=== PATIENT | male | born 1985 | race Two or more races ===

== ENCOUNTER 2024-07-07 17:01 | Inpatient (IN) | payer MEDICAID, OTHER ==
[~2024-07-07] VITALS: Ht 177.8 cm; Wt 65.5 kg
[2024-07-07] MEDS: fentaNYL CITRATE 100 MCG/2 ML VL IV ONE ×2 (17:15→20:36)
[2024-07-07] MEDS: SODIUM CHLORIDE 0.9% 500 ML IV ONE (17:15)
--- NOTE | 2024-07-07 17:17 | ED.PDOC ---
Musculoskeletal HPI Comments HPI: Poor Historian. 38-year-old male presents to the emergency department for left leg pain. Patient states he was playing basketball and he jumped and landed and heard a crack and has sudden severe left proximal tibia pain with noted deformity and swelling. Patient has been unable to ambulate since then. He appears in moderate distress. Denies any other acute symptoms. VITALS: TEMP: 98.2 HEART RATE; 110 02 SAT; 100% on room air RR; 18 BP; 123/87 PMH:denies PSH: denies SOCIAL HISTORY: denies tobacco use, endorses etoh use, endorses drug use(marijuana) MEDS; denies ALLERGIES; denies REVIEW OF SYSTEMS: CONSTITUTIONAL: Denies acute: fever, diaphoresis, chills, generalized weakness. HEAD: Denies acute: headache, photophobia Eyes: Denies acute: Double vision, vision loss, eye pain, eye discharge. EARS: Denies acute: tinnitus, hearing loss, ear discharge, ear pain, THROAT: Denies acute: sore throat, swelling, difficulty swallowing , pain with swallowing, change in voice. NECK: Denies acute: neck pain, neck swelling, stiff neck. HEART: Denies acute : chest pain, palpitations, LUNGS: Denies acute: SOB, wheezing, cough, hemoptysis ABDOMEN: Denies acute: abdominal pain, Nausea, Vomiting, diarrhea, melena , hematemesis, hematochezia SKIN: Denies acute: rash, redness, lesions, itchiness. EXTREMITIES: Denies acute: calf pain, numbness, tingling, weakness, denies pain in extremity. Denies acute: Low back pain. Neuro: Denies acute: focal neurological deficit, motor or sensory focal neurological deficit, tremors, seizure like activity, confusion, dizziness, change in mental status, loss of bowel or bladder function, cauda equina like symptoms. : Denies acute: dysuria, hematuria, flank pain, increase in urinary frequency. PSYCH: Denies acute: hallucination, suicidal ideation, homicidal ideation. PHYSICAL EXAM: General: Moderate acute distress, awake and alert. Head: normocephalic, atraumatic. Neck: supple, trachea is midline, no swelling. Throat: Normal phonation. Eyes:, no erythema, no purulent discharge, no proptosis, no icterus. Heart: regular tachycardia but in pain. no significant murmur appreciated. Lungs: no apparent respiratory distress, Able to speak in full sentences. No wheezing, no rhonchi, no crackles. No stridors Clear to auscultation bilaterally. Abdomen: non tender to palpation, non distended, soft, no guarding, no rebound, + bowel sounds. Neuro: Awake, Alert, oriented to name, self, situation, follows commands GCS=15. Speech is normal. Skin: no petechia, no purpura, no cyanosis, non-pale, not jaundice. Lower extremities: --no - Pitting edema Noted focal swelling and deformity over the proximal part of the anterior tibia of left extremity. no calf TTP. Patient is neurovascularly intact in the affected extremity. Pedal pulses palpable. Sensory and motor are present in the distal extremity. Makes eye contact. moves all four extremities. Decreased range of motion of the left lower extremity secondary to pain Face: no apparent facial droop. Chief Complaint: Lower Extremity Time Seen by MD: 17:05 Reviewed Notes: Nurses Notes, Medications, Allergies Allergies: Coded Allergies: NO KNOWN ALLERGIES (Unverified , 07/07/24) Information Source: Patient Mode of Arrival: Ambulatory Brought in by: self Location: Left Past Medical History PAST MEDICAL HISTORY: Denies Surgical History: Denies all surgeries Family History Family History: Reviewed,noncontributory to illness Social History Smoker: Non-Smoker Alcohol: Occasionally Drugs: Marijuana Lives In: Home Was a procedure done? Was a procedure done?: No Differential Diagnosis EXT Differential Diagnosis: Deep Vein Thrombosis, Compartment Syndrome, Fracture, Sprain, Dislocation, Gout, DJD, Myocardial Infarction, Contusion, Strain, Septic, Neurovascular injury, Arthritis, Bursitis X-Ray, Labs, Meds, VS Vital Signs Date Time Temp Pulse Resp B/P (MAP) Pulse Ox O2 Delivery O2 Flow Rate FiO2 07/07/24 20:36 143/107 07/07/24 20:32 98.3 68 18 143/107 (119) 100 98.3 07/07/24 18:50 66 18 99 Room Air* 0 21 07/07/24 18:48 98.1 66 18 128/85 (99) 100 98.1 07/07/24 17:15 145/80 07/07/24 17:10 98.2 110 18 23/87 (66) 100 Lab Test 07/07/24 17:30 Range/Units White Blood Count 7.1 4.4-10.8 10^3/uL Red Blood Count 3.97 L 4.5-5.90 10^6/uL Hemoglobin 12.5 L 13.5-17.5 g/dL Hematocrit 37.8 L 41.0-53.0 % Mean Corpuscular Volume 95.2 80.0-100.0 fL Mean Corpuscular Hemoglobin 31.5 28.0-32.0 pg Mean Corpuscular Hemoglobin Concent 33.1 32.0-36.0 g/dL Red Cell Distribution Width 14.6 H 11.8-14.3 % Platelet Count 264 140-450 10^3/uL Mean Platelet Volume 8.1 6.9-10.8 fL Neutrophils (%) (Auto) 56.9 37.0-80.0 % Lymphocytes (%) (Auto) 30.3 10.0-50.0 % Monocytes (%) (Auto) 6.5 0.0-12.0 % Eosinophils (%) (Auto) 5.6 0.0-7.0 % Basophils (%) (Auto) 0.7 0.0-2.0 % Neutrophils # (Auto) 4.0 1.6-8.6 10 ^3/uL Lymphocytes # (Auto) 2.1 0.4-5.4 10 ^3/uL Monocytes # (Auto) 0.5 0-1.3 10 ^3/uL Eosinophils # (Auto) 0.4 0-0.8 10 ^3/uL Basophils # (Auto) 0 0-0.2 10 ^3/uL Nucleated Red Blood Cells 0.0 % Sodium Level 142 136-145 mmol/L Potassium Level 3.9 3.5-5.1 mmol/L Chloride Level 108 H 98-107 mmol/L Carbon Dioxide Level 26 20-31 mmol/L Anion Gap 8 5-15 Blood Urea Nitrogen 8 L 9-23 mg/dL Creatinine 1.38 H 0.700-1.30 mg/dL Glomerular Filtration Rate Calc 68 >90 mL/min BUN/Creatinine Ratio 5.8 L 10.0-20.0 Serum Glucose 117 H 74-106 mg/dL Calcium Level 10.1 8.7-10.4 mg/dL Current Medications Medications (Trade) Dose Ordered Sig/Martin Route Start Time Stop Time Status Last Admin Fentanyl Citrate 100 mcg ONCE ONCE IV 07/07/24 17:15 07/07/24 17:16 DC 07/07/24 17:15 Sodium Chloride 500 ml @ 500 mls/hr Q1H ONCE IV 07/07/24 17:15 07/07/24 18:14 DC 07/07/24 17:15 Fentanyl Citrate 100 mcg ONCE ONCE IV 07/07/24 20:15 07/07/24 20:16 DC 07/07/24 20:[address] [address] Ph: [phone] DIAGNOSTIC IMAGING Diagnostic Imaging Report : [id number] Signed PATIENT: YANELIS KILPATRICK ACCT: [id number] UNIT: [id number] : 1985 LOC: ER ROOM / BED: / AGE / SEX: 38 / M ADM STATUS: REG ER SERVICE 12 ORDERING PHYSICIAN: MAHAD FLOR DO PROCEDURE(s): LTBFB - L TIB FIB XRAY REASON: fall, trauma ORDER NUMBER(s): [id number], ACCESSION NUMBER(s): [id number] CLINICAL INDICATION: fall, trauma TECHNIQUE: 5 radiographic views of the left tibia were obtained. Comparison: None FINDINGS/IMPRESSION: There is a hairline nondisplaced fracture of the proximal left tibia which extends into the lateral tibial plateau. The visualized joint space is well maintained. The alignment is anatomical. There is no radiopaque foreign body. ATED BY: NORY MCNALLY Jr., DO DICTATED DATE/TIME: 07/07/241750 SIGNED BY: NORY MCNALLY Jr., DO SIGNED DATE/TIME: 07/07/241750 CC: [address] [address] Ph: [phone] DIAGNOSTIC IMAGING Diagnostic Imaging Report : [id number] Signed PATIENT: YANELIS KILPATRICK ACCT: [id number] UNIT: [id number] : 1985 LOC: ER ROOM / BED: / AGE / SEX: 38 / M ADM STATUS: REG ER SERVICE 12 ORDERING PHYSICIAN: MAHAD FLOR DO PROCEDURE(s): LKNE3 - L KNEE 3V XRAY REASON: fall, trauma ORDER NUMBER(s): [id number], ACCESSION NUMBER(s): [id number] CLINICAL INDICATION: fall, trauma TECHNIQUE: 3 radiographic views of the left knee were obtained. Comparison: None FINDINGS/IMPRESSION: Nondisplaced hairline fracture through the proximal tibia extending into the lateral tibial plateau. The visualized joint space is well maintained. The alignment is anatomical. There is no radiopaque foreign body. ATED BY: NORY MCNALLY Jr., DO DICTATED DATE/TIME: 07/07/241751 SIGNED BY: NORY MCNALLY Jr., SIGNED DATE/TIME: 07/07/241751 CC: Time of 1ST Reevaluation: 20:31 (Patient was in severe pain. I am giving him fentanyl. I discussed the case earlier with orthopedic surgeon Dr. Ordonez who said that this patient can be admitted or discharged either way. If the patient is admitted he said he will round on the patient tomorrow. If the patient is discharged in knee immobilizer and crutches. Patient seems that he will not be able to control his pain with oral pain medications at home.) Reevaluation 1ST: Unchanged Patient Education/Counseling: Diagnosis, Treatment Family Education/Counseling: No Family Present Comments Patient presented with the above HPI.--leg injury/pain----workup was initiated. patient was found with the above mentioned diagnosis. Patient was given: Fentanyl for pain control. Patient ED course and VS have been stabilized. Patient has been reassessed in the ED and remained in a stable condition. Pertinent incidental findings were discussed with the patient and/or family. Patient/family voices understanding and is agreeable with plan. Patient has been observed in the ED adequate length of time to insure improvement/stability. patient was admitted to the medicine team for further evaluation and treatment of their presentation. Orthopedic surgery was consulted who reviewed the films. Knee immobilizer was placed. CT scan is still pending. All the reports of any imaging studies that were ordered by myself were reviewed by myself. I recommend admitting the patient to the hospital for pain control and orthopedic surgery evaluation/intervention and to monitor for possible compartment syndrome development overnight. Departure 1 Departure Time of Disposition: 20:31 Impression: Primary Impression: Left tibial fracture Additional Impression: Hematoma of left lower leg Disposition: 09 ADMITTED INPATIENT Admit to: Tele Condition: Guarded Additional Instructions: below is a copy of your imaging studies performed in the ED for follow up: [place] [address] Ph: [phone] DIAGNOSTIC IMAGING Diagnostic Imaging Report : [id number] Signed PATIENT: YANELIS KILPATRICK ACCT: [id number] UNIT: [id number] : 1985 LOC: ER ROOM / BED: / AGE / SEX: 38 / M ADM STATUS: REG ER SERVICE 12 ORDERING PHYSICIAN: MAHAD FLOR DO PROCEDURE(s): LTBFB - L TIB FIB XRAY REASON: fall, trauma ORDER NUMBER(s): [id number], ACCESSION NUMBER(s): [id number] CLINICAL INDICATION: fall, trauma TECHNIQUE: 5 radiographic views of the left tibia were obtained. Comparison: None FINDINGS/IMPRESSION: There is a hairline nondisplaced fracture of the proximal left tibia which extends into the lateral tibial plateau. The visualized joint space is well maintained. The alignment is anatomical. There is no radiopaque foreign body. ATED BY: NORY MCNALLY Jr., DO DICTATED DATE/TIME: 07/07/241750 SIGNED BY: NORY MCNALLY Jr., DO SIGNED DATE/TIME: 07/07/241750 CC: Discharged With: Self Critical Care Note Critical Care Time?: Yes (35 min-critical care time only) I personally scribed for MAHAD FLOR DO ([email or web address]) on 07/07/24 at 18:28. Electronically submitted by Adore Pedersen (SEDA). I personally scribed for MAHAD FLOR DO ([email or web address]) on 07/07/24 at 18:49. Electronically submitted by Adore Pedersen ([facility]). I personally scribed for MAHAD FLOR DO ([facility]) on 07/07/24 at 19:38. Electronically submitted by Adore Pedersen (SEDA). MAHAD FLOR DO Jul 07, 2024 17:17
--- NOTE | 2024-07-07 17:54 | DVH ---
CLINICAL INDICATION: fall, trauma TECHNIQUE: 5 radiographic views of the left tibia were obtained. Comparison: None FINDINGS/IMPRESSION: There is a hairline nondisplaced fracture of the proximal left tibia which extends into the lateral t ibial plateau. The visualized joint space is well maintained. The alignment is anatomical. There is no radiopaque foreign body.
--- NOTE | 2024-07-07 17:55 | DVH ---
CLINICAL INDICATION: fall, trauma TECHNIQUE: 3 radiographic views of the left knee were obtained. Comparison: None FINDINGS/IMPRESSION: Nondisplaced hairline fracture through the proximal tibia extending into the lateral tibial plateau. The visualized joint space is well maintained. The alignment is anatomical. There is no radiopaque foreign body.
[2024-07-07 18:22] LABS: Basophils # (auto) 0 10 ^3/uL (0-0.2); Basophils % (auto) 0.7 % (0.0-2.0); Eosinophils # (auto) 0.4 10 ^3/uL (0-0.8); Eosinophils % (auto) 5.6 % (0.0-7.0); Hematocrit 37.8 % (41.0-53.0); Hemoglobin 12.5 g/dL (13.5-17.5); Lymphocytes # (auto) 2.1 10 ^3/uL (0.4-5.4); Lymphocytes % (auto) 30.3 % (10.0-50.0); Mean Corpuscular Hemoglobin 31.5 pg (28.0-32.0); Mean Corpuscular Hgb Conc. 33.1 g/dL (32.0-36.0); Mean Corpuscular Volume 95.2 fL (80.0-100.0); Monocytes # (auto) 0.5 10 ^3/uL (0-1.3); Monocytes % (auto) 6.5 % (0.0-12.0); Neutrophils % (auto) 56.9 % (37.0-80.0); Platelet Count (auto) 264 10^3/uL (140-450); Red Blood Cells 3.97 10^6/uL (4.5-5.90); Red Cell Distribution Width 14.6 % (11.8-14.3); White Blood Cell 7.1 10^3/uL (4.4-10.8)
[2024-07-07 18:28] LABS: Chloride 108 mmol/L (98-107); Potassium 3.9 mmol/L (3.5-5.1); Sodium 142 mmol/L (136-145)
[2024-07-07 18:29] LABS: Anion Gap 8 (5-15); Calcium 10.1 mg/dL (8.7-10.4); Carbon Dioxide 26 mmol/L (20-31)
[2024-07-07 18:34] LABS: BUN/Creatinine Ratio 5.8 (10.0-20.0); Blood Urea Nitrogen 8 mg/dL (9-23); Glucose 117 mg/dL (74-106)
[2024-07-07 18:50] VITALS: PULSE 66; RESP 18; O2SAT 99
--- NOTE | 2024-07-07 21:42 | DVHHPRES ---
History of Present Illness Resident Creating Document: BRIAN MOODY RESIDENT History of Present Illness This is a 32-k[age] male with no significant past medical history presented to the ED with a chief complaint of Left left leg pain for 1 hour prior to this admission. The patient states he was playing basketball and he jumped and landed on the ground and heard a crack sound and and has sudden severe left proximal leg pain with noted deformity and swelling and not able to ambulate since then. The patient also mentioned pain , swelling and severe tenderness in the region of proximal tibia . The patient denies chest pain, shortness of breath, abdominal pain, nausea, vomiting or any change in bowel and bladder habit. Past Medical History None Past Surgical History None Smoke: No ALCOHOL: none Drugs: Marijuana Past Social History Nonsmoker, occasional drinker and smoke marijuana every day Lives with family Review of Systems Constitutional: No: Fever, Chills, Sweats, Weakness, Malaise, Other Eyes: No: Pain, Vision change, Conjunctivae inflammation, Eyelid inflammation, Other, Redness ENT: No: Ear pain, Ear discharge, Nose pain, Nose discharge, Nose congestion, Mouth pain, Mouth swelling, Throat pain, Throat swelling, Other Respiratory: No: Cough, Dry, Shortness of breath, SOB with excertion, Wheezing, Hemoptysis, Pleuritic Pain, Sputum, Wheezing, Other Cardiovascular: No: Chest Pain, Palpitations, Orthopnea, Paroxysmal Noc. Dyspnea, Edema, Lt Headedness, Other Gastrointestinal: No: Nausea, Vomiting, Abdominal Pain, Diarrhea, Constipation, Melena, Hematochezia, Other Genitourinary: No Dysuria, No Frequency, No Incontinence, No Hematuria, No Retention, No Other Musculoskeletal: leg pain; No: other, neck pain, shoulder pain, arm pain, back pain, hand pain, foot pain Skin: No: Rash, Lesions, Jaundice, Bruising, Other Neurological: No: Weakness, Numbness, Incoordination, Change in speech, Confusion, Seizures, Other Allergies: Coded Allergies: NO KNOWN ALLERGIES (Unverified , 07/07/24) Medications Current Medications Medications Dose Ordered Sig/Martin Route Start Time Stop Time Status Last Admin Dose Admin Sodium Chloride 10 ml Q8HR IV 07/07/24 22:00 UNV Sodium Chloride 1,000 ml @ 75 mls/hr [id number] IV 07/07/24 21:45 UNV Acetaminophen/ Hydrocodone Bitart 1 tab Q4HP PRN PO 07/07/24 21:45 UNV Ondansetron HCl 4 mg Q4HP PRN IV 07/07/24 21:45 UNV Nitroglycerin 0.4 mg Q5MINP PRN SL 07/07/24 21:45 UNV Morphine Sulfate 2 mg Q30M PRN IV 07/07/24 21:45 UNV Exam Vital Signs Vital Signs Date Time Temp Pulse Resp B/P (MAP) Pulse Ox O2 Delivery O2 Flow Rate FiO2 07/07/24 20:36 143/107 07/07/24 20:32 98.3 68 18 100 98.3 07/07/24 18:50 Room Air* 0 21 Exam Physical examination: General Appearance: Alert, Oriented X3, Cooperative, Moderate distress. HEENT: Atraumatic, PERRLA, EOMI, Mucous membrane moist/pink Respiratory: Clear to auscultation, Normal air movement Cardiovascular: Regular rate, Normal S1, Normal S2, No murmurs, no chest wall tenderness Abdominal: Normal bowel sounds, Soft, No tenderness, No hepatospenomegaly, No masses Extremities:Swelling and tenderness in the left proximal tibia. No clubbing, No cyanosis, No edema, Normal pulses. Skin: No rashes, No breakdown, No significant lesion Neuro: Normal gait, Normal speech, Strength at 5/5 X4 ext, Normal tone, Sensation intact, grossly intact cranial nerves. Psych/Mental Status: Mental status NL, Mood NL Labs/Xrays Labs Test 07/07/24 17:30 Range/Units White Blood Count 7.1 4.4-10.8 10^3/uL Red Blood Count 3.97 L 4.5-5.90 10^6/uL Hemoglobin 12.5 L 13.5-17.5 g/dL Hematocrit 37.8 L 41.0-53.0 % Mean Corpuscular Volume 95.2 80.0-100.0 fL Mean Corpuscular Hemoglobin 31.5 28.0-32.0 pg Mean Corpuscular Hemoglobin Concent 33.1 32.0-36.0 g/dL Red Cell Distribution Width 14.6 H 11.8-14.3 % Platelet Count 264 140-450 10^3/uL Mean Platelet Volume 8.1 6.9-10.8 fL Neutrophils (%) (Auto) 56.9 37.0-80.0 % Lymphocytes (%) (Auto) 30.3 10.0-50.0 % Monocytes (%) (Auto) 6.5 0.0-12.0 % Eosinophils (%) (Auto) 5.6 0.0-7.0 % Basophils (%) (Auto) 0.7 0.0-2.0 % Neutrophils # (Auto) 4.0 1.6-8.6 10 ^3/uL Lymphocytes # (Auto) 2.1 0.4-5.4 10 ^3/uL Monocytes # (Auto) 0.5 0-1.3 10 ^3/uL Eosinophils # (Auto) 0.4 0-0.8 10 ^3/uL Basophils # (Auto) 0 0-0.2 10 ^3/uL Nucleated Red Blood Cells 0.0 % Sodium Level 142 136-145 mmol/L Potassium Level 3.9 3.5-5.1 mmol/L Chloride Level 108 H 98-107 mmol/L Carbon Dioxide Level 26 20-31 mmol/L Anion Gap 8 5-15 Blood Urea Nitrogen 8 L 9-23 mg/dL Creatinine 1.38 H 0.700-1.30 mg/dL Glomerular Filtration Rate Calc 68 >90 mL/min BUN/Creatinine Ratio 5.8 L 10.0-20.0 Serum Glucose 117 H 74-106 mg/dL Calcium Level 10.1 8.7-10.4 mg/dL Assessment/Plan Assessment/Plan Assessment and plan: # S/P mechanical fall # fracture of the proximal tibia - CT left lower extremity revealed comminuted minimally displaced fracture involving the lateral tibial plateau, proximal tibia metaphysis with slight depression of the posterior lateral tibial plateau measuring 8 mm and moderate lipohemarthrosis of the left knee joint. - IV Toradol 30 mg t.i.d. - Consulted Orthopedics # JACKI likely secondary to hemodynamically mediated/VMN - Patient was given 1 L bolus normal saline followed by IV normal saline at 100 mL/hour - Monitor BMP # Vitamin D deficiency - vitamin-D 28040 units Q 7D. Goal of care discussed with the patient for more than 17 minutes full code Plan of treatment discussed with Dr. Garcia. Plan discussed with: Patient, Other My Orders Orders - BRIAN MOODY RESIDENT Procedure Category Date Status Time Admit ADMIT 07/07/24 Transmitted 21:37 Code Status CODE 07/07/24 Transmitted 21:37 Sodium Chloride Lock PHA 07/07/24 Logged (Saline Lock Ns) 22:00 Sodium Chloride 0.9% PHA 07/07/24 Logged 21:45 Hydrocodone-Acet PHA 07/07/24 Logged 5/325mg Tab ([place] 21:45 Ondansetron Hcl PHA 07/07/24 Logged (Zofran) 21:45 Complete Blood Count LAB 07/08/24 Verified 04:00 Comprehensive LAB 07/08/24 Verified Metabolic Panel 04:00 Nitroglycerin PHA 07/07/24 Logged Sublingual ([place]trostat 21:45 Morphine Sulfate PHA 07/07/24 Logged Injection 21:45 Oxygen By Nasal RT 07/07/24 Transmitted Cannula 21:37 Stat Ekg For Chest [facility] 07/07/24 In Process Pain 21:37 Notify Md Of Changes [facility] 07/07/24 In Process From Base 21:37 Partnership Marketing Manager For [facility] 07/07/24 In Process 24 Hours 21:37 Emergency Dysrhythmia [facility] 07/07/24 In Process Protocol 21:37 Rhythm Strips Once [facility] 07/07/24 In Process Every Shift 21:37 Ketorolac Injection [facility] 07/07/24 Verified (Toradol Injection) 21:45 Ketorolac Injection [facility] 07/07/24 Verified (Toradol Injection) 22:00 Date of Service: Jul 07, 2024 Billing Provider: JIM GARCIA MD Common Visit Codes: [id number] INP/OBS CARE (HIGH) Secondary Visit Codes: [id number] CARE PLAN 30 MINUTES BRIAN MODOY RESIDENT Jul 07, 2024 21:42 JIM GARCIA MD Jul 08, 2024 17:39
[2024-07-07] MEDS ORDERED: NITROGLYCERIN 0.4 MG SL TAB SL PRN (21:45)
[2024-07-07] MEDS ORDERED: MORPHINE SULFATE INJ 2 MG/ml SYRG IV PRN (21:45)
[2024-07-07] MEDS ORDERED: SODIUM CHLORIDE 0.9% 1,000 ML IV SCH (21:45)
--- NOTE | 2024-07-07 22:40 | DVH ---
CHEST RADIOGRAPH Indication:shortness of breath Technique: Single frontal view of the chest was obtained Comparison: None FINDINGS: Lines and Tubes: None Lungs: No focal consolidation. Pleura: No effusion. No pneumothorax. Cardiomediastinal contours: Unremarkable Bones: No acute osseous abnormality. IMPRESSION: 1. No acute cardiopulmonary disease.
[2024-07-07] MEDS: KETOROLAC TROMETH 30 MG/ML 1ML VIAL IV ONE (22:44)
[2024-07-07 22:59] LABS: INR 0.99 (0.9-1.15); Partial Thromboplastin Time 26.5 SEC (24.5-34.5); Prothrombin Time 10.5 sec (9.3-11.8)
[2024-07-07] MEDS: KETOROLAC TROMETH 30 MG/ML 1ML VIAL IV SCH (23:39)
[2024-07-07] MEDS: HYDROcodone-ACET 5/325MG TAB PO PRN (23:39)
[2024-07-07] MEDS: SODIUM CHLORIDE 0.9% 1,000 ML IV SCH (23:40)
[2024-07-07] MEDS: SODIUM CHLOR 0.9% PF (SALINE LOCK) 10ML VIAL/SYR IV SCH (23:41)
[2024-07-08] VITALS (7 sets, daily range): BP systolic 115–138; BP diastolic 71–82; PULSE 56–74; RESP 16–21; TEMP 98–98.9; O2SAT 99–100
--- NOTE | 2024-07-08 01:48 | DVH ---
INDICATION: fracture left leg COMPARISON: None TECHNIQUE: CT of the left tibia and fibula was performed without contrast. Volume transverse images w ere obtained and reconstructed in multiple planes using bone and soft tissue algorithms. All CT scans at this medical facility are performed using dose modulation techniques as appropriate t o a performed exam including the following: Automated exposure control was utilized; adjustment of th e MA and/or KV according to patient size; and use of iterative reconstruction technique. FINDINGS: There is a comminuted minimally displaced fracture with transverse fracture line through the proximal tibia metadiaphysis and fracture lines through the lateral tibial plateau. Slight depression of the posterior lateral tibial plateau measuring 8 mm on series 602, image 83. No additional acute fractur e. There is normal mineralization and normal alignment. The joint spaces are preserved. There is a li pohemarthrosis of the left knee joint which is moderate in size. The muscle bundles about the distal left lower extremity are intact with some muscular edema. IMPRESSION: 1. Comminuted minimally displaced fracture involving the lateral tibial plateau with slight depressio n of the posterior lateral tibial plateau measuring 8 mm. 2. Comminuted minimally displaced fracture components through the proximal tibia metadiaphysis. 3. Moderate lipohemarthrosis of the left knee joint.
[2024-07-08] MEDS ORDERED: ERGOCALCIFEROL 50,000 UNIT(1.25MG) CAP PO SCH (02:15)
[2024-07-08] MEDS: ERGOCALCIFEROL 50,000 UNIT(1.25MG) CAP PO SCH (03:55)
[2024-07-08 09:24] LABS: Basophils # (auto) 0 10 ^3/uL (0-0.2); Basophils % (auto) 0.5 % (0.0-2.0); Eosinophils # (auto) 0.2 10 ^3/uL (0-0.8); Eosinophils % (auto) 2.4 % (0.0-7.0); Hematocrit 31.4 % (41.0-53.0); Hemoglobin 10.7 g/dL (13.5-17.5); Lymphocytes # (auto) 1.2 10 ^3/uL (0.4-5.4); Lymphocytes % (auto) 12.9 % (10.0-50.0); Mean Corpuscular Hemoglobin 31.8 pg (28.0-32.0); Mean Corpuscular Hgb Conc. 33.9 g/dL (32.0-36.0); Mean Corpuscular Volume 93.8 fL (80.0-100.0); Monocytes # (auto) 1.2 10 ^3/uL (0-1.3); Monocytes % (auto) 12.6 % (0.0-12.0); Neutrophils # (auto) 6.7 10 ^3/uL (1.6-8.6); Neutrophils % (auto) 71.6 % (37.0-80.0); Platelet Count (auto) 216 10^3/uL (140-450); Red Blood Cells 3.35 10^6/uL (4.5-5.90); Red Cell Distribution Width 14.3 % (11.8-14.3); White Blood Cell 9.3 10^3/uL (4.4-10.8)
[2024-07-08 09:49] LABS: Alanine Aminotransferase 11 U/L (7-40); Albumin 4.1 g/dL (3.2-4.8); Alkaline Phosphatase 70 U/L (46-116); Anion Gap 6 (5-15); Aspartate Aminotransferase 21 U/L (13-40); BUN/Creatinine Ratio 7.6 (10.0-20.0); Bilirubin, Total 0.6 mg/dL (0.2-1.0); Blood Urea Nitrogen 9 mg/dL (9-23); Calcium 9.5 mg/dL (8.7-10.4); Carbon Dioxide 27 mmol/L (20-31); Chloride 109 mmol/L (98-107); Glucose 106 mg/dL (74-106); Potassium 3.9 mmol/L (3.5-5.1); Sodium 142 mmol/L (136-145); Total Protein 6.7 g/dL (5.7-8.2)
[2024-07-08 09:54] LABS: Amphetamine Screen, Urine Neg (NEGATIVE); Barbiturate Scree,Urine Neg (NEGATIVE); Benzodiazephine Screen, Urine Neg (NEGATIVE); Cocaine Screen, Urine Neg (NEGATIVE)
[2024-07-08 09:55] LABS: Cannabinoid Screen, Urine Pos (NEGATIVE); Opiate Scree,Urine Neg (NEGATIVE); Phencyclidine Screen, Urine Neg (NEGATIVE)
--- NOTE | 2024-07-08 13:33 | DVHPN2 ---
Reviewed: Care Plan, H&P, Labs, Medications, Previous Orders, Radiology Changes from previous H/P or p: No Changes Eyes: No Pain, No Vision change, No Conjunctivae inflammation, No Eyelid inflammation, No Other, No Redness ENT: No Ear pain, No Ear discharge, No Nose pain, No Nose discharge, No Nose congestion, No Mouth pain, No Mouth swelling, No Throat pain, No Throat swelling, No Other Cardiovascular: No Chest Pain, No Palpitations, No Orthopnea, No Paroxysmal Noc. Dyspnea, No Edema, No Lt Headedness, No Other Respiratory: No Cough, No Dry, No Shortness of breath, No SOB with excertion, No Wheezing, No Hemoptysis, No Pleuritic Pain, No Sputum, No Other Gastrointestinal: No Nausea, No Vomiting, No Abdominal Pain, No Diarrhea, No Constipation, No Melena, No Hematochezia, No Other Genitourinary: No Dysuria, No Frequency, No Incontinence, No Hematuria, No Retention, No Other Musculoskeletal: No other, No neck pain, No shoulder pain, No arm pain, No back pain, No hand pain; leg pain; No foot pain Skin: No Rash, No Lesions, No Jaundice, No Bruising, No Other Objective Vitals Vital Signs Date Time Temp Pulse Resp B/P (MAP) Pulse Ox O2 Delivery O2 Flow Rate FiO2 07/08/24 09:00 98.9 57 21 122/79 (93) 100 98.9 07/08/24 03:13 Room Air* 0 21 Intake/Output Intake and Output 07/08/24 07:00 Intake Total 500 ml Balance 500 ml Intake Oral 0 ml IV Total 500 ml Medications Current Medications Medications Dose Ordered Sig/Martin Route Start Time Stop Time Status Last Admin Dose Admin Sodium Chloride 10 ml Q8HR IV 07/07/24 22:00 07/08/24 05:57 10 ML Acetaminophen/ Hydrocodone Bitart 1 tab Q4HP PRN PO 07/07/24 21:45 07/08/24 10:40 1 TAB Ondansetron HCl 4 mg Q4HP PRN IV 07/07/24 21:45 Nitroglycerin 0.4 mg Q5MINP PRN SL 07/07/24 21:45 Morphine Sulfate 2 mg Q30M PRN IV 07/07/24 21:45 Ketorolac Tromethamine 30 mg TID IV 07/07/24 22:00 07/12/24 21:59 07/08/24 05:53 30 MG Sodium Chloride 1,000 ml @ 100 mls/hr Q10H IV 07/07/24 22:00 07/08/24 08:00 100 MLS/HR Ergocalciferol 50,000 unit Q7D PO 07/08/24 02:30 07/08/24 03:55 50,000 UNIT Laboratory Results Laboratory Tests 07/08/24 09:07 Chemistry Test 07/07/24 17:30 07/08/24 09:07 Calcium Level 10.1 mg/dL (8.7-10.4) 9.5 mg/dL (8.7-10.4) Albumin 4.1 g/dL (3.2-4.8) Total Protein 6.7 g/dL (5.7-8.2) Coagulation Test 07/07/24 17:55 Prothrombin Time 10.5 sec (9.3-11.8) Prothrombin Time INR 0.99 (0.9-1.15) Activated Partial Thromboplast Time 26.5 SEC (24.5-34.5) LFT Test 07/08/24 09:07 Alanine Aminotransferase (ALT) 11 U/L (7-40) Alkaline Phosphatase 70 U/L (46-116) Aspartate Amino Transferase (AST) 21 U/L (13-40) Total Bilirubin 0.6 mg/dL (0.2-1.0) HgA1c, TSH Test 07/07/24 17:55 Hemoglobin A1c 5.6 % A1C (<5.7) Thyroid Stimulating Hormone (TSH) 1.53 uIU/mL (0.55-4.78) Labs and/or images reviewed: Labs reviewed by me, Image(s) reviewed by me Assessment/Plan Assessment/Plan Acute fracture proximal left tibia: Pain medication consult for orthopedic Dr. Starks Injury playing basketball Plan discussed with: Patient My Orders Orders - DANDRE ALEXIS MD Procedure Category Date Status Time * Orthopedic Consult CONS 07/08/24 Verified 13:30 Date of Service: Jul 08, 2024 Billing Provider: DANDRE ALEXIS MD Common Visit Codes: [id number] INP/OBS CARE(HIGH) DANDRE ALEXIS MD Jul 08, 2024 13:33
--- NOTE | 2024-07-08 14:01 | DVHPN2 ---
Date of Progress Note Date of Progress Note Date of Progress Note: 07/08/24 Date of Admission Date of Admission Date of Admission: Date of Admission: Jul 07, 2024 at 21:37 Overnight Events Overnight events Overnight Events pt placed in knee immoblizer Past Medical History Past Medical History Past Medical History non contributory Past Surgical History Past Surgical History Past Surgical History none Social History Social History Social History non contributory Family History Family History Family History: Patient reports no known family medical history. Allergies: Coded Allergies: NO KNOWN ALLERGIES (Unverified , 07/07/24) Current Medications Current Medications Medications (Trade) Dose Ordered Sig/Martin Route PRN Reason Start Time Stop Time Status Last Admin Sodium Chloride (Saline Lock Ns) 10 ml Q8HR IV 07/07/24 22:00 07/08/24 05:57 Sodium Chloride 1,000 ml @ 75 mls/hr [id number] IV 07/07/24 21:45 07/07/24 22:01 DC Acetaminophen/ Hydrocodone Bitart ([place] 5/325MG Tab) 1 tab Q4HP PRN PO MODERATE PAIN (4-6 PAIN SCALE) 07/07/24 21:45 07/08/24 10:40 Ondansetron HCl (Zofran) 4 mg Q4HP PRN IV NAUSEA / VOMITING 07/07/24 21:45 Nitroglycerin (Ntrostat Sublingual) 0.4 mg Q5MINP PRN SL FOR CHEST PAIN 07/07/24 21:45 Morphine Sulfate 2 mg Q30M PRN IV FOR CHEST PAIN 07/07/24 21:45 Ketorolac Tromethamine (Toradol Injection) 30 mg TID IV 07/07/24 22:00 07/12/24 21:59 07/08/24 13:57 Sodium Chloride 1,000 ml @ 100 mls/hr Q10H IV 07/07/24 22:00 07/08/24 08:00 Ergocalciferol (Vitamin D 50,000 Unit) 50,000 unit Q7D PO 07/08/24 02:15 07/08/24 02:22 DC Ergocalciferol (Vitamin D 50,000 Unit) 50,000 unit Q7D PO 07/08/24 02:30 07/08/24 03:55 Physical Examination General Examination: Last Vital sign Vital Signs Date Time Temp Pulse Resp B/P (MAP) Pulse Ox O2 Delivery O2 Flow Rate FiO2 07/08/24 09:00 98.9 57 21 122/79 (93) 100 98.9 07/08/24 03:13 Room Air* 0 21 General: General: No apparent distress, appears comfortable. Cooperative. HEENT: NCAT Extremities: Left leg, moderate swelling left knee, leg NVI, Skin intact compartments soft pain under control with PO meds ROM / stability not assessed due to fracture Skin: intact Neurological Examination: Neurological Examination: Mental Status: Cranial Nerves: Motor Examination: Reflexes: Sensory: Coordination: Gait: NVI Labs: Labs: Laboratory Tests Test 07/07/24 17:30 07/07/24 17:55 07/08/24 09:00 07/08/24 09:07 Range/Units White Blood Count 7.1 9.3 # 4.4-10.8 10^3/uL Red Blood Count 3.97 L 3.35 L 4.5-5.90 10^6/uL Hemoglobin 12.5 L 10.7 L 13.5-17.5 g/dL Hematocrit 37.8 L 31.4 #L 41.0-53.0 % Mean Corpuscular Volume 95.2 93.8 80.0-100.0 fL Mean Corpuscular Hemoglobin 31.5 31.8 28.0-32.0 pg Mean Corpuscular Hemoglobin Concent 33.1 33.9 32.0-36.0 g/dL Red Cell Distribution Width 14.6 H 14.3 11.8-14.3 % Platelet Count 264 216 140-450 10^3/uL Mean Platelet Volume 8.1 7.6 6.9-10.8 fL Neutrophils (%) (Auto) 56.9 71.6 37.0-80.0 % Lymphocytes (%) (Auto) 30.3 12.9 10.0-50.0 % Monocytes (%) (Auto) 6.5 12.6 H 0.0-12.0 % Eosinophils (%) (Auto) 5.6 2.4 0.0-7.0 % Basophils (%) (Auto) 0.7 0.5 0.0-2.0 % Neutrophils # (Auto) 4.0 6.7 1.6-8.6 10 ^3/uL Lymphocytes # (Auto) 2.1 1.2 0.4-5.4 10 ^3/uL Monocytes # (Auto) 0.5 1.2 0-1.3 10 ^3/uL Eosinophils # (Auto) 0.4 0.2 0-0.8 10 ^3/uL Basophils # (Auto) 0 0 0-0.2 10 ^3/uL Nucleated Red Blood Cells 0.0 0.0 % Sodium Level 142 142 136-145 mmol/L Potassium Level 3.9 3.9 3.5-5.1 mmol/L Chloride Level 108 H 109 H 98-107 mmol/L Carbon Dioxide Level 26 27 20-31 mmol/L Anion Gap 8 6 5-15 Blood Urea Nitrogen 8 L 9 9-23 mg/dL Creatinine 1.38 H 1.18 0.700-1.30 mg/dL Glomerular Filtration Rate Calc 68 82 >90 mL/min BUN/Creatinine Ratio 5.8 L 7.6 L 10.0-20.0 Serum Glucose 117 H 106 74-106 mg/dL Calcium Level 10.1 9.5 8.7-10.4 mg/dL Prothrombin Time 10.5 9.3-11.8 sec Prothrombin Time INR 0.99 0.9-1.15 Activated Partial Thromboplast Time 26.5 24.5-34.5 SEC Hemoglobin A1c 5.6 <5.7 % A1C Vitamin B12 Level 386 211-911 pg/mL Vitamin D 25-Hydroxy 9.0 L 30.0-100 ng/mL Thyroid Stimulating Hormone (TSH) 1.53 0.55-4.78 uIU/mL Urine Opiates Screen Neg NEGATIVE Urine Fentanyl Screen Pos NEGATIVE Urine Barbiturates Screen Neg NEGATIVE Urine Phencyclidine Screen Neg NEGATIVE Urine Amphetamines Screen Neg NEGATIVE Urine Benzodiazepines Screen Neg NEGATIVE Urine Cocaine Screen Neg NEGATIVE Urine Cannabinoids Screen Pos NEGATIVE Total Bilirubin 0.6 0.2-1.0 mg/dL Aspartate Amino Transferase (AST) 21 13-40 U/L Alanine Aminotransferase (ALT) 11 7-40 U/L Alkaline Phosphatase 70 46-116 U/L Total Protein 6.7 5.7-8.2 g/dL Albumin 4.1 3.2-4.8 g/dL Imaging Imaging: CT left knee lateral tibial plateau fracture, comminuted, depressed, 2 cm Assessment/Plan Assessment/Plan Assessment and Plan:Jason Moreno is a 38 year old male who presents with laterral tibial plateau fracture 1) dc to home to allow swelling to dissipate 2) pt will be contacted to schedule ORIF of left lateral tibial plateau fracture Plan discussed with: Patient NORY GUY MD Jul 08, 2024 14:01
[2024-07-09] VITALS (9 sets, daily range): BP systolic 125–135; BP diastolic 72–84; PULSE 59–94; RESP 17–21; TEMP 98.2–98.7; O2SAT 98–100
[2024-07-09 00:35] LABS: Urine Bacteria None Seen /hpf (None Seen)
[2024-07-09 00:42] LABS: Urine Blood Negative /uL (Negative); Urine Clarity Clear (Clear); Urine Color Light-Yellow (Yellow); Urine Protein, UAD Negative (Negative); Urine Specific Gravity 1.015 (1.001-1.035); Urine Urobilinogen 2 mg/dL (Negative); Urine WBC 1 /hpf (0 - 3); Urine pH 6.5 (5.0-9.0)
[2024-07-09] MEDS ORDERED: PERCOT PO (09:23)
--- NOTE | 2024-07-09 09:25 | DVHPN2 ---
Reviewed: Care Plan, H&P, Labs, Medications, Previous Orders, Radiology Changes from previous H/P or p: No Changes Eyes: No Pain, No Vision change, No Conjunctivae inflammation, No Eyelid inflammation, No Other, No Redness ENT: No Ear pain, No Ear discharge, No Nose pain, No Nose discharge, No Nose congestion, No Mouth pain, No Mouth swelling, No Throat pain, No Throat swelling, No Other Cardiovascular: No Chest Pain, No Palpitations, No Orthopnea, No Paroxysmal Noc. Dyspnea, No Edema, No Lt Headedness, No Other Respiratory: No Cough, No Dry, No Shortness of breath, No SOB with excertion, No Wheezing, No Hemoptysis, No Pleuritic Pain, No Sputum, No Other Gastrointestinal: No Nausea, No Vomiting, No Abdominal Pain, No Diarrhea, No Constipation, No Melena, No Hematochezia, No Other Genitourinary: No Dysuria, No Frequency, No Incontinence, No Hematuria, No Retention, No Other Musculoskeletal: No other, No neck pain, No shoulder pain, No arm pain, No back pain, No hand pain; leg pain; No foot pain Skin: No Rash, No Lesions, No Jaundice, No Bruising, No Other Objective Vitals Vital Signs Date Time Temp Pulse Resp B/P (MAP) Pulse Ox O2 Delivery O2 Flow Rate FiO2 07/09/24 05:00 98.7 71 19 130/77 (94) 100 98.7 07/08/24 20:00 Room Air* 0 21 Intake/Output Intake and Output 07/09/24 07:00 Intake Total 1825 ml Output Total 1400 ml Balance 425 ml Intake Oral 825 ml IV Total 1000 ml Output Urine Total 1400 ml Medications Current Medications Medications Dose Ordered Sig/Martin Route Start Time Stop Time Status Last Admin Dose Admin Sodium Chloride 10 ml Q8HR IV 07/07/24 22:00 07/09/24 06:00 10 ML Acetaminophen/ Hydrocodone Bitart 1 tab Q4HP PRN PO 07/07/24 21:45 07/09/24 08:51 1 TAB Ondansetron HCl 4 mg Q4HP PRN IV 07/07/24 21:45 Nitroglycerin 0.4 mg Q5MINP PRN SL 07/07/24 21:45 Morphine Sulfate 2 mg Q30M PRN IV 07/07/24 21:45 Ketorolac Tromethamine 30 mg TID IV 07/07/24 22:00 07/12/24 21:59 07/09/24 05:40 30 MG Sodium Chloride 1,000 ml @ 100 mls/hr Q10H IV 07/07/24 22:00 07/09/24 04:49 100 MLS/HR Ergocalciferol 50,000 unit Q7D PO 07/08/24 02:30 07/08/24 03:55 50,000 UNIT Laboratory Results Laboratory Tests 07/08/24 09:07 Urinalysis Test 07/09/24 00:27 Urine Color Light-yellow (Yellow) Urine Clarity Clear (Clear) Urine pH 6.5 (5.0-9.0) Urine Specific [place] 1.015 (1.001-1.035) Urine Protein Negative (Negative) Urine Ketones Negative (Negative) Urine Blood Negative /uL (Negative) Urine Nitrite Negative (Negative) Urine Bilirubin Negative (Negative) Urine Urobilinogen 2 mg/dL (Negative) H Urine Leukocyte Esterase Negative /uL (Negative) Urine RBC 1 /hpf (0 - 3) Urine WBC 1 /hpf (0 - 3) Urine Squamous Epithelial Cells None seen /hpf (<5) Urine Bacteria None seen /hpf (None Seen) Urine Glucose Normal mg/dL (Normal) Labs and/or images reviewed: Labs reviewed by me, Image(s) reviewed by me Assessment/Plan Assessment/Plan Acute lateral tibial plateau fracture, comminuted, depressed, 2 cm, orthopedic consult by Dr.Mac John appreciated, knee brace given advised to discharge the patient home to reduce the swelling and follow up as an outpatient for surgery Injury playing basketball Patient visiting from [place] Plan discussed with: Patient My Orders Orders - DANDRE ALEXIS MD Procedure Category Date Status Time * Orthopedic Consult CONS 07/08/24 Transmitted 13:30 Date of Service: Jul 09, 2024 Billing Provider: DANDRE ALEXIS MD Common Visit Codes: [id number] INP/OBS CARE(HIGH) DANDRE ALEXIS MD Jul 09, 2024 09:25
--- NOTE | 2024-07-09 09:29 | DVHDS2 ---
Discharge Summary Date of Admission Jul 07, 2024 at 21:37 Date of Discharge: Jul 09, 2024 Admitting Diagnosis Fracture left tibial plateau Wounds: Fracture left tibial plateau Labs/Diagnostic Data: Laboratory Results Test 07/09/24 00:27 07/08/24 09:07 07/08/24 09:00 07/07/24 17:55 Urine Color Light-yellow (Yellow) Urine Clarity Clear (Clear) Urine pH 6.5 (5.0-9.0) Urine Specific [place] 1.015 (1.001-1.035) Urine Protein Negative (Negative) Urine Ketones Negative (Negative) Urine Blood Negative /uL (Negative) Urine Nitrite Negative (Negative) Urine Bilirubin Negative (Negative) Urine Urobilinogen 2 mg/dL (Negative) Urine Leukocyte Esterase Negative /uL (Negative) Urine RBC 1 /hpf (0 - 3) Urine WBC 1 /hpf (0 - 3) Urine Squamous Epithelial Cells None seen /hpf (<5) Urine Bacteria None seen /hpf (None Seen) Urine Glucose Normal mg/dL (Normal) White Blood Count 9.3 10^3/uL (4.4-10.8) Red Blood Count 3.35 10^6/uL (4.5-5.90) Hemoglobin 10.7 g/dL (13.5-17.5) Hematocrit 31.4 % (41.0-53.0) Mean Corpuscular Volume 93.8 fL (80.0-100.0) Mean Corpuscular Hemoglobin 31.8 pg (28.0-32.0) Mean Corpuscular Hemoglobin Concent 33.9 g/dL (32.0-36.0) Red Cell Distribution Width 14.3 % (11.8-14.3) Platelet Count 216 10^3/uL (140-450) Mean Platelet Volume 7.6 fL (6.9-10.8) Neutrophils (%) (Auto) 71.6 % (37.0-80.0) Lymphocytes (%) (Auto) 12.9 % (10.0-50.0) Monocytes (%) (Auto) 12.6 % (0.0-12.0) Eosinophils (%) (Auto) 2.4 % (0.0-7.0) Basophils (%) (Auto) 0.5 % (0.0-2.0) Neutrophils # (Auto) 6.7 10 ^3/uL (1.6-8.6) Lymphocytes # (Auto) 1.2 10 ^3/uL (0.4-5.4) Monocytes # (Auto) 1.2 10 ^3/uL (0-1.3) Eosinophils # (Auto) 0.2 10 ^3/uL (0-0.8) Basophils # (Auto) 0 10 ^3/uL (0-0.2) Nucleated Red Blood Cells 0.0 % Sodium Level 142 mmol/L (136-145) Potassium Level 3.9 mmol/L (3.5-5.1) Chloride Level 109 mmol/L (98-107) Carbon Dioxide Level 27 mmol/L (20-31) Anion Gap 6 (5-15) Blood Urea Nitrogen 9 mg/dL (9-23) Creatinine 1.18 mg/dL (0.700-1.30) Glomerular Filtration Rate Calc 82 mL/min (>90) BUN/Creatinine Ratio 7.6 (10.0-20.0) Serum Glucose 106 mg/dL (74-106) Calcium Level 9.5 mg/dL (8.7-10.4) Total Bilirubin 0.6 mg/dL (0.2-1.0) Aspartate Amino Transferase (AST) 21 U/L (13-40) Alanine Aminotransferase (ALT) 11 U/L (7-40) Alkaline Phosphatase 70 U/L (46-116) Total Protein 6.7 g/dL (5.7-8.2) Albumin 4.1 g/dL (3.2-4.8) Urine Opiates Screen Neg (NEGATIVE) Urine Fentanyl Screen Pos (NEGATIVE) Urine Barbiturates Screen Neg (NEGATIVE) Urine Phencyclidine Screen Neg (NEGATIVE) Urine Amphetamines Screen Neg (NEGATIVE) Urine Benzodiazepines Screen Neg (NEGATIVE) Urine Cocaine Screen Neg (NEGATIVE) Urine Cannabinoids Screen Pos (NEGATIVE) Prothrombin Time 10.5 sec (9.3-11.8) Prothrombin Time INR 0.99 (0.9-1.15) Activated Partial Thromboplast Time 26.5 SEC (24.5-34.5) Hemoglobin A1c 5.6 % A1C (<5.7) Vitamin B12 Level 386 pg/mL (211-911) Vitamin D 25-Hydroxy 9.0 ng/mL (30.0-100) Thyroid Stimulating Hormone (TSH) 1.53 uIU/mL (0.55-4.78) Other Laboratory Tests 07/08/24 09:07 Brief Hx & Hospital Course: Patient is from [place] visiting his family here. Injured his left knee playing basketball. CT showed left tibial plateau fracture. Seen by orthopedic Dr. Ordonez advised knee brace and discharged on pain medication to follow up in two weeks for surgery. He advised the swelling should go down prior to attempt to surgery. The patient was explained about the plan and he agreed and being discharged home on Percocet. He has knee brace in place . We will arrange crutches. Consults/Reason for consult Orthopedic Dr. Ordonez Operations or Procedures CT left knee Condition at Discharge: Fair Final Diagnosis/Problems List Acute lateral tibial plateau fracture, comminuted, depressed, 2 cm, orthopedic consult by Dr.Mac John appreciated, knee brace given advised to discharge the patient home to reduce the swelling and follow up as an outpatient for surgery Injury playing basketball Patient visiting from [place] Discharge Disposition: Home Discharge Instruct/Medications Diet: Regular Activity: See Comment Activity comment: Weight-bearing left lower extremity as tolerated Follow Up/Referral: Follow up with the orthopedic Dr. Ordonez in two weeks Medications: Percocet Transmitted to [address] (Time taken for discharge summary 39 minutes) Discharge Statement: "Patient was advised to return to the ER or call 911 if any headaches, dizziness, shortness of breath, chest pain, abdominal pain, bleeding, fevers, or worsening of medical condition. Patient was counseled about treatment plan, medications, possible side effects, patientverbalized understanding. All questions were answered to the best of my ability. This discharge took greater then 30 minutes in planning, reviewing documentation, counseling the patient, and discussing with other team members." DME: Diagnosis: Fracture left tibial plateau ASSESSMENT ASSESSMENT Hospital Course Improved Assessment Acute lateral tibial plateau fracture, comminuted, depressed, 2 cm, orthopedic consult by Dr.Mac John appreciated, knee brace given advised to discharge the patient home to reduce the swelling and follow up as an outpatient for surgery Injury playing basketball Patient visiting from [place] Date of Service: Jul 09, 2024 Billing Provider: DANDRE ALEXIS MD Common Visit Codes: [id number] DISCH DAY >30min DANDRE ALEXIS MD Jul 09, 2024 09:28
[2024-07-09] MEDS: HYDROMORPHONE HCL 1 MG/ML INJ IV ONE (11:59)
[2024-07-09] MEDS: ONDANSETRON HCL 4 MG/2 ML VIAL IV PRN (12:59)
[2024-07-10] VITALS (7 sets, daily range): BP systolic 126–148; BP diastolic 69–96; PULSE 51–70; RESP 16–19; TEMP 98.1–98.4; O2SAT 99–100
--- NOTE | 2024-07-10 08:18 | DVHPN2 ---
Reviewed: Care Plan, H&P, Labs, Medications, Previous Orders, Radiology Changes from previous H/P or p: No Changes Eyes: No Pain, No Vision change, No Conjunctivae inflammation, No Eyelid inflammation, No Other, No Redness ENT: No Ear pain, No Ear discharge, No Nose pain, No Nose discharge, No Nose congestion, No Mouth pain, No Mouth swelling, No Throat pain, No Throat swelling, No Other Cardiovascular: No Chest Pain, No Palpitations, No Orthopnea, No Paroxysmal Noc. Dyspnea, No Edema, No Lt Headedness, No Other Respiratory: No Cough, No Dry, No Shortness of breath, No SOB with excertion, No Wheezing, No Hemoptysis, No Pleuritic Pain, No Sputum, No Other Gastrointestinal: No Nausea, No Vomiting, No Abdominal Pain, No Diarrhea, No Constipation, No Melena, No Hematochezia, No Other Genitourinary: No Dysuria, No Frequency, No Incontinence, No Hematuria, No Retention, No Other Musculoskeletal: No other, No neck pain, No shoulder pain, No arm pain, No back pain, No hand pain; leg pain; No foot pain Skin: No Rash, No Lesions, No Jaundice, No Bruising, No Other Objective Vitals Vital Signs Date Time Temp Pulse Resp B/P (MAP) Pulse Ox O2 Delivery O2 Flow Rate FiO2 07/10/24 05:00 98.1 58 17 128/69 (88) 100 98.1 07/09/24 19:30 Room Air* 0 21 Intake/Output Intake and Output 07/10/24 07:00 Intake Total 2420 ml Output Total 600 ml Balance 1820 ml Intake Oral 2120 ml Tube Feeding 300 ml Output Urine Total 600 ml Medications Current Medications Medications Dose Ordered Sig/Martin Route Start Time Stop Time Status Last Admin Dose Admin Sodium Chloride 10 ml Q8HR IV 07/07/24 22:00 07/10/24 06:41 10 ML Ondansetron HCl 4 mg Q4HP PRN IV 07/07/24 21:45 07/09/24 12:59 4 MG Nitroglycerin 0.4 mg Q5MINP PRN SL 07/07/24 21:45 Sodium Chloride 1,000 ml @ 100 mls/hr Q10H IV 07/07/24 22:00 07/10/24 00:20 100 MLS/HR Ergocalciferol 50,000 unit Q7D PO 07/08/24 02:30 07/08/24 03:55 50,000 UNIT Hydromorphone HCl 2 mg Q4HPRN PRN IV 07/10/24 08:15 UNV Laboratory Results Laboratory Tests 07/08/24 09:07 Urinalysis Test 07/09/24 00:27 Urine Color Light-yellow (Yellow) Urine Clarity Clear (Clear) Urine pH 6.5 (5.0-9.0) Urine Specific [place] 1.015 (1.001-1.035) Urine Protein Negative (Negative) Urine Ketones Negative (Negative) Urine Blood Negative /uL (Negative) Urine Nitrite Negative (Negative) Urine Bilirubin Negative (Negative) Urine Urobilinogen 2 mg/dL (Negative) H Urine Leukocyte Esterase Negative /uL (Negative) Urine RBC 1 /hpf (0 - 3) Urine WBC 1 /hpf (0 - 3) Urine Squamous Epithelial Cells None seen /hpf (<5) Urine Bacteria None seen /hpf (None Seen) Urine Glucose Normal mg/dL (Normal) Labs and/or images reviewed: Labs reviewed by me, Image(s) reviewed by me Assessment/Plan Assessment/Plan Acute lateral tibial plateau fracture, comminuted, depressed, 2 cm, orthopedic consult by Dr.Mac John appreciated, knee brace given advised to discharge the patient home to reduce the swelling and follow up as an outpatient for surgery Injury playing basketball Patient visiting from [place] Patient was discharged home on 07/09/2024 per recommendation of orthopedic Dr. Starks, patient refused to go home saying that he was lot of pain and wanted the surgery to be done before discharge. Patient requesting 2nd opinion from Orthopedic. Discussed with the patient today in the presence of JAVIER Tucker and charge nurse Kaya Oneill and Toradol discontinued and started on Dilaudid 2 mg IV q.4 hours p.r.n. for the pain Physical therapy ordered Placed consult for Dr. Nguyễn to arrange for 2nd opinion Also gave the patient option of transfer to [facility] and the [facility] if necessary He agrees with the plan and wants to wait for the 2nd opinion Plan discussed with: Patient My Orders Orders - DANDRE ALEXIS MD Procedure Category Date Status Time Dme: Crutches DME 07/09/24 Transmitted 09:25 * Interventional Cardiologist CONS 07/09/24 Transmitted Consult Pt Request For Service PT 07/09/24 Logged 17:39 Hydromorphone Hcl Inj PHA 07/10/24 Logged (Dilaudid Innjecti 08:15 Date of Service: Jul 10, 2024 Billing Provider: DANDRE ALEXIS MD Common Visit Codes: [id number] INP/OBS CARE(HIGH) DANDRE ALEXIS MD Jul 10, 2024 08:18
[2024-07-10] MEDS: HYDROMORPHONE HCL 1 MG/ML INJ IV PRN (11:03)
[2024-07-11] VITALS (7 sets, daily range): BP systolic 114–136; BP diastolic 71–84; PULSE 55–69; RESP 16–20; TEMP 98.5–99; O2SAT 96–100
--- NOTE | 2024-07-11 07:07 | DVHPN2 ---
Progress Note - Dictate Date Seen: Jul 11, 2024 Medical Necessity Reason Pt with a Central, PICC or Fol: No Subjective Pain in left knee as expected; no numbness or tingling vital signs Vital Sign Date Time Temp Pulse Resp B/P (MAP) Pulse Ox O2 Delivery O2 Flow Rate FiO2 07/11/24 01:00 98.7 55 20 131/79 (96) 99 98.7 07/10/24 19:30 Room Air* 0 21 Total Intake and Output 07/10/24 07/10/24 07/11/24 15:00 23:00 07:00 Intake Total 2300 ml 464 ml Output Total 300 ml Balance 2300 ml 164 ml medications Current Medications Medications Dose Ordered Sig/Martin Route Start Time Stop Time Status Last Admin Dose Admin Sodium Chloride 10 ml Q8HR IV 07/07/24 22:00 07/11/24 06:00 10 ML Ondansetron HCl 4 mg Q4HP PRN IV 07/07/24 21:45 07/10/24 16:36 4 MG Nitroglycerin 0.4 mg Q5MINP PRN SL 07/07/24 21:45 Sodium Chloride 1,000 ml @ 100 mls/hr Q10H IV 07/07/24 22:00 07/10/24 16:38 100 MLS/HR Ergocalciferol 50,000 unit Q7D PO 07/08/24 02:30 07/08/24 03:55 50,000 UNIT Hydromorphone HCl 2 mg Q4HP PRN IV 07/11/24 07:00 laboratory and microbiology Laboratory Tests 07/08/24 09:07 Test 07/08/24 09:07 Range/Units Serum Glucose 106 74-106 mg/dL Assessment/Plan left tibial plateau fracture - I had a long discussion with patient that we will wait 10-14 days for skin swelling to decrease prior to definitive fixation - strict elevation lle - pain control - fu with ortho in 7-10 days to book surgerey with Dr. Cervantes at [facility] Plan discussed with: Patient JULIANE GALLARDO MD Jul 11, 2024 07:07
--- NOTE | 2024-07-11 08:38 | DVHPN2 ---
Reviewed: Care Plan, H&P, Labs, Medications, Previous Orders, Radiology Changes from previous H/P or p: No Changes Eyes: No Pain, No Vision change, No Conjunctivae inflammation, No Eyelid inflammation, No Other, No Redness ENT: No Ear pain, No Ear discharge, No Nose pain, No Nose discharge, No Nose congestion, No Mouth pain, No Mouth swelling, No Throat pain, No Throat swelling, No Other Cardiovascular: No Chest Pain, No Palpitations, No Orthopnea, No Paroxysmal Noc. Dyspnea, No Edema, No Lt Headedness, No Other Respiratory: No Cough, No Dry, No Shortness of breath, No SOB with excertion, No Wheezing, No Hemoptysis, No Pleuritic Pain, No Sputum, No Other Gastrointestinal: No Nausea, No Vomiting, No Abdominal Pain, No Diarrhea, No Constipation, No Melena, No Hematochezia, No Other Genitourinary: No Dysuria, No Frequency, No Incontinence, No Hematuria, No Retention, No Other Musculoskeletal: No other, No neck pain, No shoulder pain, No arm pain, No back pain, No hand pain; leg pain; No foot pain Skin: No Rash, No Lesions, No Jaundice, No Bruising, No Other Objective Vitals Vital Signs Date Time Temp Pulse Resp B/P (MAP) Pulse Ox O2 Delivery O2 Flow Rate FiO2 07/11/24 01:00 98.7 55 20 131/79 (96) 99 98.7 07/10/24 19:30 Room Air* 0 21 Intake/Output Intake and Output 07/11/24 06:59 Intake Total 2764 ml Output Total 300 ml Balance 2464 ml Intake Oral 1664 ml IV Total 1100 ml Output Urine Total 300 ml # Voids 1 Medications Current Medications Medications Dose Ordered Sig/Martin Route Start Time Stop Time Status Last Admin Dose Admin Sodium Chloride 10 ml Q8HR IV 07/07/24 22:00 07/11/24 06:00 10 ML Ondansetron HCl 4 mg Q4HP PRN IV 07/07/24 21:45 07/10/24 16:36 4 MG Nitroglycerin 0.4 mg Q5MINP PRN SL 07/07/24 21:45 Sodium Chloride 1,000 ml @ 100 mls/hr Q10H IV 07/07/24 22:00 07/10/24 16:38 100 MLS/HR Ergocalciferol 50,000 unit Q7D PO 07/08/24 02:30 07/08/24 03:55 50,000 UNIT Hydromorphone HCl 2 mg Q4HP PRN IV 07/11/24 07:00 Acetaminophen/ Hydrocodone Bitart 1 tab Q4HP PRN PO 07/11/24 07:15 Laboratory Results Laboratory Tests 07/08/24 09:07 Urinalysis Test 07/09/24 00:27 Urine Color Light-yellow (Yellow) Urine Clarity Clear (Clear) Urine pH 6.5 (5.0-9.0) Urine Specific [place] 1.015 (1.001-1.035) Urine Protein Negative (Negative) Urine Ketones Negative (Negative) Urine Blood Negative /uL (Negative) Urine Nitrite Negative (Negative) Urine Bilirubin Negative (Negative) Urine Urobilinogen 2 mg/dL (Negative) H Urine Leukocyte Esterase Negative /uL (Negative) Urine RBC 1 /hpf (0 - 3) Urine WBC 1 /hpf (0 - 3) Urine Squamous Epithelial Cells None seen /hpf (<5) Urine Bacteria None seen /hpf (None Seen) Urine Glucose Normal mg/dL (Normal) Labs and/or images reviewed: Labs reviewed by me, Image(s) reviewed by me Assessment/Plan Assessment/Plan Acute lateral tibial plateau fracture, comminuted, depressed, 2 cm, orthopedic consult by Dr.Mac John appreciated, knee brace given advised to discharge the patient home to reduce the swelling and follow up as an outpatient for surgery Injury playing basketball Patient visiting from [place] Patient was discharged home on 07/09/2024 per recommendation of orthopedic Dr. Starks, patient refused to go home saying that he was lot of pain and wanted the surgery to be done before discharge. Patient requesting 2nd opinion from Orthopedic. Discussed with the patient today in the presence of JAVIER Tucker and charge nurse Kaya Oneill and Toradol discontinued and started on Dilaudid 2 mg IV q.4 hours p.r.n. for the pain Physical therapy ordered Consult by Dr. gNuyễn appreciated Dr Nguyễn wrote: "- I had a long discussion with patient that we will wait 10-14 days for skin swelling to decrease prior to definitive fixation - strict elevation lle - pain control - fu with ortho in 7-10 days to book surgerey with Dr. Cervantes at [facility]" RN Caitlin at bedside Patient refused to be discharged and wants to be transferred to higher level of care Spoke with his Ms Gao [phone] on the phone and the patient and his requesting to be transferred to higher level of care Orders placed Plan discussed with: Patient My Orders Orders - DANDRE ALEXIS MD Procedure Category Date Status Time Hydromorphone PHA 07/11/24 In Process Injection (Dilaudid 07:00 Date of Service: Jul 11, 2024 Billing Provider: DANDRE ALEXIS MD Common Visit Codes: [id number] INP/OBS CARE(HIGH) DANDRE ALEXIS MD Jul 11, 2024 08:38
--- NOTE | 2024-07-11 08:42 | DVHTS ---
Transfer Summary Transfer Summary Date of Admission Jul 07, 2024 at 21:37 Date of Transfer: Jul 09, 2024 Transfer Diagnosis Left tibial plateau fracture playing basketball Brief Hx & Hospital Course: 38-year-old male injured his left knee playing basketball. CT left knee showed acute lateral tibial plateau fracture Community depressed 2 cm. Seen by trauma surgeon Dr. Starks and advised the patient wait for two weeks so that this edema around the knee to go down and schedule surgery in two weeks. Patient was not satisfactory and wanted 2nd opinion and was seen by orthopedic Dr Nguyễn who also advised the patient should wait for 10-14 days for the swelling to go down and we will schedule surgery as an outpatient. The patient is not happy and he is requesting transfer to higher level of care. I spoke to the patient's Ms. Gao on the phone and she is also requesting transfer. Pain managed by Dilaudid injection and Percocet.. Patient did not cooperate with physical therapy because of pain Transfer to: Higher level of care Date of Service: Jul 11, 2024 Billing Provider: DANDRE ALEXIS MD Common Visit Codes: [id number] DISCH DAY >30min DANDRE ALEXIS MD Jul 11, 2024 08:42
[2024-07-11] MEDS: HYDROmorphone HCL 2 MG/ML VL/or syr IV PRN (08:43)
[2024-07-12] VITALS (7 sets, daily range): BP systolic 118–133; BP diastolic 63–82; PULSE 58–63; RESP 18–20; TEMP 97.8–98.5; O2SAT 97–100
--- NOTE | 2024-07-12 08:49 | DVHPN2 ---
Reviewed: Care Plan, H&P, Labs, Medications, Previous Orders, Radiology Changes from previous H/P or p: No Changes Eyes: No Pain, No Vision change, No Conjunctivae inflammation, No Eyelid inflammation, No Other, No Redness ENT: No Ear pain, No Ear discharge, No Nose pain, No Nose discharge, No Nose congestion, No Mouth pain, No Mouth swelling, No Throat pain, No Throat swelling, No Other Cardiovascular: No Chest Pain, No Palpitations, No Orthopnea, No Paroxysmal Noc. Dyspnea, No Edema, No Lt Headedness, No Other Respiratory: No Cough, No Dry, No Shortness of breath, No SOB with excertion, No Wheezing, No Hemoptysis, No Pleuritic Pain, No Sputum, No Other Gastrointestinal: No Nausea, No Vomiting, No Abdominal Pain, No Diarrhea, No Constipation, No Melena, No Hematochezia, No Other Genitourinary: No Dysuria, No Frequency, No Incontinence, No Hematuria, No Retention, No Other Musculoskeletal: No other, No neck pain, No shoulder pain, No arm pain, No back pain, No hand pain; leg pain; No foot pain Skin: No Rash, No Lesions, No Jaundice, No Bruising, No Other Objective Vitals Vital Signs Date Time Temp Pulse Resp B/P (MAP) Pulse Ox O2 Delivery O2 Flow Rate FiO2 07/12/24 05:00 98.2 61 18 119/64 (82) 99 98.2 07/11/24 20:00 Room Air* 0 21 Intake/Output Intake and Output 07/12/24 07:00 Intake Total 900 ml Output Total 1250 ml Balance -350 ml Intake Oral 900 ml Output Urine Total 1250 ml Medications Current Medications Medications Dose Ordered Sig/Martin Route Start Time Stop Time Status Last Admin Dose Admin Sodium Chloride 10 ml Q8HR IV 07/07/24 22:00 07/12/24 05:45 10 ML Ondansetron HCl 4 mg Q4HP PRN IV 07/07/24 21:45 07/12/24 03:29 4 MG Nitroglycerin 0.4 mg Q5MINP PRN SL 07/07/24 21:45 Sodium Chloride 1,000 ml @ 100 mls/hr Q10H IV 07/07/24 22:00 07/11/24 18:50 100 MLS/HR Ergocalciferol 50,000 unit Q7D PO 07/08/24 02:30 07/08/24 03:55 50,000 UNIT Hydromorphone HCl 2 mg Q4HP PRN IV 07/11/24 07:00 07/12/24 03:31 2 MG Acetaminophen/ Hydrocodone Bitart 1 tab Q4HP PRN PO 07/11/24 07:15 Laboratory Results Laboratory Tests 07/08/24 09:07 Urinalysis Test 07/09/24 00:27 Urine Color Light-yellow (Yellow) Urine Clarity Clear (Clear) Urine pH 6.5 (5.0-9.0) Urine Specific [place] 1.015 (1.001-1.035) Urine Protein Negative (Negative) Urine Ketones Negative (Negative) Urine Blood Negative /uL (Negative) Urine Nitrite Negative (Negative) Urine Bilirubin Negative (Negative) Urine Urobilinogen 2 mg/dL (Negative) H Urine Leukocyte Esterase Negative /uL (Negative) Urine RBC 1 /hpf (0 - 3) Urine WBC 1 /hpf (0 - 3) Urine Squamous Epithelial Cells None seen /hpf (<5) Urine Bacteria None seen /hpf (None Seen) Urine Glucose Normal mg/dL (Normal) Labs and/or images reviewed: Labs reviewed by me, Image(s) reviewed by me Assessment/Plan Assessment/Plan Acute lateral tibial plateau fracture, comminuted, depressed, 2 cm, orthopedic consult by Dr.Mac John appreciated, knee brace given advised to discharge the patient home to reduce the swelling and follow up as an outpatient for surgery Injury playing basketball Patient visiting from [place] Patient was discharged home on 07/09/2024 per recommendation of orthopedic Dr. Starks, patient refused to go home saying that he was lot of pain and wanted the surgery to be done before discharge. Patient requesting 2nd opinion from Orthopedic. Discussed with the patient today in the presence of JAVIER Tucker and charge nurse Kaya Oneill and Toradol discontinued and started on Dilaudid 2 mg IV q.4 hours p.r.n. for the pain Physical therapy ordered Consult by Dr. Nguyễn appreciated Dr Nguyễn wrote: "- I had a long discussion with patient that we will wait 10-14 days for skin swelling to decrease prior to definitive fixation - strict elevation lle - pain control - fu with ortho in 7-10 days to book surgerey with Dr. Cervantes at [facility]" RN Caitlin at bedside Patient refused to be discharged and wants to be transferred to higher level of care Spoke with his Ms Gao [phone] on the phone and the patient and his requesting to be transferred to higher level of care Orders placed I spoke to the ortho doctors through transfer center at [facility] and both of them agreed with the opinion of our orthopedic doctors and refused to accept the patient. change release manager spoke with the patient and patient agreed to be discharged home. I discussed with the patient and patient is being discharged home to follow up with the Dr. Starks in two weeks for surgery Plan discussed with: Patient My Orders Orders - DANDRE ALEXIS MD Procedure Category Date Status Time * Professor Of German CONS 07/11/24 Transmitted Consult Discharge DISCHARGE 07/11/24 Transmitted 08:39 Covid19 Antigen [facility] 07/11/24 Logged Date of Service: Jul 12, 2024 Billing Provider: DANDRE ALEXIS MD Common Visit Codes: [id number] INP/OBS CARE(HIGH) DANDRE ALEXIS MD Jul 12, 2024 08:49
[2024-07-13] VITALS (8 sets, daily range): BP systolic 118–164; BP diastolic 75–96; PULSE 64–92; RESP 18–22; TEMP 97.9–98.4; O2SAT 96–100
[2024-07-13] MEDS: HYDROcodone-ACET 10/325MG TAB PO PRN (00:26)
[2024-07-13] MEDS ORDERED: PERCOT PO ×2 (08:12→13:09)
--- NOTE | 2024-07-13 08:17 | DVHPN2 ---
Reviewed: Care Plan, H&P, Labs, Medications, Previous Orders, Radiology Changes from previous H/P or p: No Changes Eyes: No Pain, No Vision change, No Conjunctivae inflammation, No Eyelid inflammation, No Other, No Redness ENT: No Ear pain, No Ear discharge, No Nose pain, No Nose discharge, No Nose congestion, No Mouth pain, No Mouth swelling, No Throat pain, No Throat swelling, No Other Cardiovascular: No Chest Pain, No Palpitations, No Orthopnea, No Paroxysmal Noc. Dyspnea, No Edema, No Lt Headedness, No Other Respiratory: No Cough, No Dry, No Shortness of breath, No SOB with excertion, No Wheezing, No Hemoptysis, No Pleuritic Pain, No Sputum, No Other Gastrointestinal: No Nausea, No Vomiting, No Abdominal Pain, No Diarrhea, No Constipation, No Melena, No Hematochezia, No Other Genitourinary: No Dysuria, No Frequency, No Incontinence, No Hematuria, No Retention, No Other Musculoskeletal: No other, No neck pain, No shoulder pain, No arm pain, No back pain, No hand pain; leg pain; No foot pain Skin: No Rash, No Lesions, No Jaundice, No Bruising, No Other Objective Vitals Vital Signs Date Time Temp Pulse Resp B/P (MAP) Pulse Ox O2 Delivery O2 Flow Rate FiO2 07/13/24 05:00 97.9 67 18 118/75 (89) 99 97.9 07/12/24 20:00 Room Air* 0 21 Intake/Output Intake and Output 07/13/24 07:00 Intake Total 1350 ml Output Total 1300 ml Balance 50 ml Intake Oral 1350 ml Output Urine Total 1300 ml Medications Current Medications Medications Dose Ordered Sig/Martin Route Start Time Stop Time Status Last Admin Dose Admin Sodium Chloride 10 ml Q8HR IV 07/07/24 22:00 07/13/24 05:45 10 ML Ondansetron HCl 4 mg Q4HP PRN IV 07/07/24 21:45 07/13/24 03:17 4 MG Nitroglycerin 0.4 mg Q5MINP PRN SL 07/07/24 21:45 Sodium Chloride 1,000 ml @ 100 mls/hr Q10H IV 07/07/24 22:00 07/11/24 18:50 100 MLS/HR Ergocalciferol 50,000 unit Q7D PO 11/15/24 02:30 07/08/24 03:55 50,000 UNIT Hydromorphone HCl 2 mg Q4HP PRN IV 07/11/24 07:00 07/13/24 03:25 2 MG Acetaminophen/ Hydrocodone Bitart 1 tab Q4HP PRN PO 07/11/24 07:15 07/13/24 00:26 1 TAB Laboratory Results Laboratory Tests 07/08/24 09:07 Urinalysis Test 07/09/24 00:27 Urine Color Light-yellow (Yellow) Urine Clarity Clear (Clear) Urine pH 6.5 (5.0-9.0) Urine Specific [place] 1.015 (1.001-1.035) Urine Protein Negative (Negative) Urine Ketones Negative (Negative) Urine Blood Negative /uL (Negative) Urine Nitrite Negative (Negative) Urine Bilirubin Negative (Negative) Urine Urobilinogen 2 mg/dL (Negative) H Urine Leukocyte Esterase Negative /uL (Negative) Urine RBC 1 /hpf (0 - 3) Urine WBC 1 /hpf (0 - 3) Urine Squamous Epithelial Cells None seen /hpf (<5) Urine Bacteria None seen /hpf (None Seen) Urine Glucose Normal mg/dL (Normal) Labs and/or images reviewed: Labs reviewed by me, Image(s) reviewed by me Assessment/Plan Assessment/Plan Acute lateral tibial plateau fracture, comminuted, depressed, 2 cm, orthopedic consult by Dr.Mac John appreciated, knee brace given advised to discharge the patient home to reduce the swelling and follow up as an outpatient for surgery Injury playing basketball Patient visiting from [place] Patient was discharged home on 07/09/2024 per recommendation of orthopedic Dr. Starks, patient refused to go home saying that he was lot of pain and wanted the surgery to be done before discharge. Patient requesting 2nd opinion from Orthopedic. Discussed with the patient today in the presence of JAVIER Tucker and charge nurse Kaya Oneill and Toradol discontinued and started on Dilaudid 2 mg IV q.4 hours p.r.n. for the pain Physical therapy ordered Consult by Dr. Nguyễn appreciated Dr Nguyễn wrote: "- I had a long discussion with patient that we will wait 10-14 days for skin swelling to decrease prior to definitive fixation - strict elevation lle - pain control - fu with ortho in 7-10 days to book surgerey with Dr. Cervantes at [facility]" RN Caitlin at bedside Patient refused to be discharged and wants to be transferred to higher level of care Spoke with his Ms Gao [phone] on the phone and the patient and his requesting to be transferred to higher level of care Orders placed I spoke to the ortho doctors through transfer center at [facility] and both of them agreed with the opinion of our orthopedic doctors and refused to accept the patient. online communications manager spoke with the patient and patient agreed to be discharged home. I discussed with the patient and patient is being discharged home to follow up with the Dr. Starks in two weeks for surgery Patient examined today . Had some pain last night. Awaiting his sister to pick him up today. Plan discussed with: Patient My Orders Orders - DANDRE ALEXIS MD Procedure Category Date Status Time * In Flight Technician CONS 07/12/24 Transmitted Consult Discharge DISCHARGE 07/13/24 Transmitted 08:14 Date of Service: Jul 13, 2024 Billing Provider: DANDRE ALEXIS MD Common Visit Codes: [id number] INP/OBS CARE(HIGH) DANDRE ALEXIS MD Jul 13, 2024 08:17
[2024-07-13] MEDS ORDERED: RIVA10TA PO (08:44)
[2024-07-13] MEDS: RIVAROXABAN 10 MG TAB PO SCH (09:48)
[2024-07-13] MEDS: LACTULOSE 20Gm/30ML SOLN PO ONE (09:48)
[2024-07-13] MEDS ORDERED: APIX5TAB PO (13:09)
[2024-07-14 01:00] VITALS: BP 115/67; PULSE 64; RESP 20; TEMP 98.1; O2SAT 98
[2024-07-14 05:00] VITALS: BP 126/71; PULSE 54; RESP 20; TEMP 98.1; O2SAT 100
[2024-07-14 08:00] VITALS: RESP 18; O2SAT 100
--- NOTE | 2024-07-14 08:25 | DVHPN2 ---
Reviewed: Care Plan, H&P, Labs, Medications, Previous Orders, Radiology Changes from previous H/P or p: No Changes Eyes: No Pain, No Vision change, No Conjunctivae inflammation, No Eyelid inflammation, No Other, No Redness ENT: No Ear pain, No Ear discharge, No Nose pain, No Nose discharge, No Nose congestion, No Mouth pain, No Mouth swelling, No Throat pain, No Throat swelling, No Other Cardiovascular: No Chest Pain, No Palpitations, No Orthopnea, No Paroxysmal Noc. Dyspnea, No Edema, No Lt Headedness, No Other Respiratory: No Cough, No Dry, No Shortness of breath, No SOB with excertion, No Wheezing, No Hemoptysis, No Pleuritic Pain, No Sputum, No Other Gastrointestinal: No Nausea, No Vomiting, No Abdominal Pain, No Diarrhea, No Constipation, No Melena, No Hematochezia, No Other Genitourinary: No Dysuria, No Frequency, No Incontinence, No Hematuria, No Retention, No Other Musculoskeletal: No other, No neck pain, No shoulder pain, No arm pain, No back pain, No hand pain; leg pain; No foot pain Skin: No Rash, No Lesions, No Jaundice, No Bruising, No Other Objective Vitals Vital Signs Date Time Temp Pulse Resp B/P (MAP) Pulse Ox O2 Delivery O2 Flow Rate FiO2 07/14/24 05:00 98.1 54 20 126/71 (89) 100 98.1 07/13/24 20:00 Room Air* 0 21 Intake/Output Intake and Output 07/14/24 07:00 Intake Total 2285 ml Output Total 1000 ml Balance 1285 ml Intake Oral 1985 ml IV Total 300 ml Output Urine Total 1000 ml # Bowel Movements 3 Medications Current Medications Medications Dose Ordered Sig/Martin Route Start Time Stop Time Status Last Admin Dose Admin Sodium Chloride 10 ml Q8HR IV 07/07/24 22:00 07/14/24 05:37 10 ML Ondansetron HCl 4 mg Q4HP PRN IV 07/07/24 21:45 07/14/24 03:36 4 MG Nitroglycerin 0.4 mg Q5MINP PRN SL 07/07/24 21:45 Sodium Chloride 1,000 ml @ 100 mls/hr Q10H IV 07/07/24 22:00 07/13/24 18:07 100 MLS/HR Ergocalciferol 50,000 unit Q7D PO 07/08/24 02:30 07/08/24 03:55 50,000 UNIT Hydromorphone HCl 2 mg Q4HP PRN IV 07/11/24 07:00 07/14/24 03:42 2 MG Acetaminophen/ Hydrocodone Bitart 1 tab Q4HP PRN PO 07/11/24 07:15 07/14/24 08:16 1 TAB Patient Own Medication 10 mg DAILY PO 07/13/24 10:00 UNV Rivaroxaban 10 mg DAILY PO 07/13/24 10:00 07/13/24 09:48 10 MG Laboratory Results Laboratory Tests 07/08/24 09:07 Urinalysis Test 07/09/24 00:27 Urine Color Light-yellow (Yellow) Urine Clarity Clear (Clear) Urine pH 6.5 (5.0-9.0) Urine Specific [place] 1.015 (1.001-1.035) Urine Protein Negative (Negative) Urine Ketones Negative (Negative) Urine Blood Negative /uL (Negative) Urine Nitrite Negative (Negative) Urine Bilirubin Negative (Negative) Urine Urobilinogen 2 mg/dL (Negative) H Urine Leukocyte Esterase Negative /uL (Negative) Urine RBC 1 /hpf (0 - 3) Urine WBC 1 /hpf (0 - 3) Urine Squamous Epithelial Cells None seen /hpf (<5) Urine Bacteria None seen /hpf (None Seen) Urine Glucose Normal mg/dL (Normal) Labs and/or images reviewed: Labs reviewed by me, Image(s) reviewed by me Assessment/Plan Assessment/Plan Acute lateral tibial plateau fracture, comminuted, depressed, 2 cm, orthopedic consult by Dr.Mac John appreciated, knee brace given advised to discharge the patient home to reduce the swelling and follow up as an outpatient for surgery Injury playing basketball Patient visiting from [place] Patient was discharged home on 07/09/2024 per recommendation of orthopedic Dr. Starks, patient refused to go home saying that he was lot of pain and wanted the surgery to be done before discharge. Patient requesting 2nd opinion from Orthopedic. Discussed with the patient today in the presence of JAVIER Tucker and charge nurse Kaya Oneill and Toradol discontinued and started on Dilaudid 2 mg IV q.4 hours p.r.n. for the pain Physical therapy ordered Consult by Dr. Nguyễn appreciated Dr Nguyễn wrote: "- I had a long discussion with patient that we will wait 10-14 days for skin swelling to decrease prior to definitive fixation - strict elevation lle - pain control - fu with ortho in 7-10 days to book surgerey with Dr. Cervantes at [facility]" JAVIER Tucker at bedside Patient refused to be discharged and wants to be transferred to higher level of care Spoke with his Ms Gao [phone] on the phone and the patient and his requesting to be transferred to higher level of care Orders placed I spoke to the ortho doctors through transfer center at [facility] and both of them agreed with the opinion of our orthopedic doctors and refused to accept the patient. manager search spoke with the patient and patient agreed to be discharged home. I discussed with the patient and patient is being discharged home to follow up with the Dr. Starks in two weeks for surgery Patient examined today . Had some pain last night. Administration authorized and arranged the transportation of the patient to [place]. Plan discussed with: Patient My Orders Orders - DANDRE ALEXIS MD Procedure Category Date Status Time Rivaroxaban Tablet PHA 07/13/24 In Process (Xarelto Tablet) 10:00 Communication Order ORDERS 07/13/24 Transmitted 13:11 * Engineering Equipment Operator CONS 07/13/24 Transmitted Consult Date of Service: Jul 14, 2024 Billing Provider: DANDRE ALEXIS MD Common Visit Codes: [id number] INP/OBS CARE(HIGH) DANDRE ALEXIS MD Jul 14, 2024 08:24
== END 2024-07-14 08:25 | disposition home or self-care (01) | DRG 342 ==
LOC: ER 17:01 → OVERFLOW 21:37 → CENTRAL 07-08 03:00
PROVIDERS: ADMIT Internal Medicine; ATTEND Family Medicine
DX: S82.142A Displaced bicondylar fracture of left tibia, initial encounter for closed fracture (principal); N17.0 Acute kidney failure with tubular necrosis; E55.9 Vitamin D deficiency, unspecified; S80.12XA Contusion of left lower leg, initial encounter; W18.39XA Other fall on same level, initial encounter; Y92.89 Other specified places as the place of occurrence of the external cause; Y99.8 Other external cause status; Y93.67 Activity, basketball
CPT/HCPCS: 36415; 71045; 73562; 73590; 73700; 80048; 80053; 80307; 81001; 82306; 82607; 83036; 84443; 85025; 85610; 85730; 96374; 96375; 97110; 97116; 97163; 97530; G0378; J1885; J2405

== ENCOUNTER 2024-08-01 19:09 | Emergency (ER) | payer MEDICAID ==
[~2024-08-01 19:09] MED LIST: APIX5TAB PO; PERCOT PO
== END 2024-08-01 20:56 | disposition left against medical advice (07) ==
LOC: ER 19:09
DX: M79.606 Pain in leg, unspecified (principal); Z53.21 Procedure and treatment not carried out due to patient leaving prior to being seen by health care provider

== ENCOUNTER 2024-08-02 07:21 | Inpatient (IN) | payer MEDICAID ==
[~2024-08-02] VITALS: Ht 175.3 cm; Wt 67.9 kg
[2024-08-02 08:32] LABS: Basophils # (auto) 0 10 ^3/uL (0-0.2); Basophils % (auto) 0.7 % (0.0-2.0); Eosinophils # (auto) 0.6 10 ^3/uL (0-0.8); Eosinophils % (auto) 8.7 % (0.0-7.0); Hematocrit 30.2 % (41.0-53.0); Lymphocytes # (auto) 1.8 10 ^3/uL (0.4-5.4); Lymphocytes % (auto) 27.8 % (10.0-50.0); Mean Corpuscular Hemoglobin 31.3 pg (28.0-32.0); Mean Corpuscular Hgb Conc. 33.2 g/dL (32.0-36.0); Mean Corpuscular Volume 94.3 fL (80.0-100.0); Monocytes # (auto) 0.4 10 ^3/uL (0-1.3); Monocytes % (auto) 5.5 % (0.0-12.0); Neutrophils # (auto) 3.8 10 ^3/uL (1.6-8.6); Neutrophils % (auto) 57.3 % (37.0-80.0); Nucleated Red Blood Cells % 0.1 %; Platelet Count (auto) 358 10^3/uL (140-450); Red Cell Distribution Width 14.8 % (11.8-14.3); White Blood Cell 6.6 10^3/uL (4.4-10.8)
[2024-08-02 08:42] LABS: Potassium 3.9 mmol/L (3.5-5.1); Sodium 142 mmol/L (136-145)
[2024-08-02 08:43] LABS: Anion Gap 4 (5-15); Carbon Dioxide 29 mmol/L (20-31)
[2024-08-02 08:44] LABS: Calcium 10.1 mg/dL (8.7-10.4)
--- NOTE | 2024-08-02 08:44 | ED.PDOC ---
History of Present Illness HPI Comments 38 y/o M presents with c/o left-lower leg fracture evaluation, today. Patient endorses on fracturing his leg, while playing basketball and being seen and admitted for 8x days at [facility] on 07/07/24. Patient comments on being discharged on pain medications and blood thinners then and scheduled for Sx f/u on 08/01/24. He states on his surgeon, Dr. John, office calling and directing him to come to the ED, instead, today, for direct admission in order to receive surgery. He denies having any symptoms at this time. Chief Complaint: Lower Extremity Time Seen by MD: 08:00 Reviewed Notes: Nurses Notes, Medications, Allergies Allergies: Coded Allergies: NO KNOWN ALLERGIES (Unverified , 07/07/24) Home Meds Active Scripts Apixaban Base (ELIQUIS) 5 Mg Tab, 5 MG PO BID, #30 TAB Prov:DANDRE ALEXIS MD 07/13/24 Oxycodone W/ Acetaminophen (Percocet 5/325MG) 1 Tab Tb, 2 TAB PO QID PRN, #60 TAB Prov:DANDRE ALEXIS MD 07/13/24 Information Source: Patient Mode of Arrival: Ambulatory Severity: Moderate Timing: Other (see HPI) Duration: Other (see HPI) Prehospital treatment: None Past Medical History PAST MEDICAL HISTORY: Denies Surgical History: Denies all surgeries Family History Family History: Reviewed,noncontributory to illness Social History Smoker: Non-Smoker Alcohol: Occasionally Drugs: Marijuana Lives In: Home All Other Systems: Reviewed and Negative (negative unless otherwise stated in HPI) Physical Exam General Appearance: Moderate Distress HEENT: Normal ENT Inspection, Pharynx Normal, TMs Normal Neck: Full Range of Motion, Non-Tender, Normal, Normal Inspection Respiratory: Chest Non-Tender, Lungs Clear, No Accessory Muscle Use, No Respiratory Distress, Normal Breath Sounds Cardiovascular: No Edema, No JVD, No Murmur, No Gallop, Normal Peripheral Pulses, Regular Rate/Rhythm Breast Exam: Deferred Gastrointestinal: No Organomegaly, Non Tender, No Pulsatile Mass, Normal Bowel Sounds, Soft Genitalia: Deferred Pelvic: Deferred Rectal: Deferred Extremities: Decreased range of motion (Left lower extremity), No calf tenderness Musculoskeletal : Apperance: Normal Neurologic: Alert, sand drier II-XII nml as Tested, No Motor Deficits, Normal Affect, Normal Mood, No Sensory Deficits Cerebellar Function: NOT DONE Reflexes: NOT DONE Skin: Dry, Normal Color, Warm Peripheral Pulses: 3+ Radial (R), 3+ Radial (L) Lymphatic: No Adenopathy Was a procedure done? Was a procedure done?: No Differential Dx Considerations may include: previous fracture, admission for orthopedic surgery X-Ray, Labs, Meds, VS Vital Signs Date Time Temp Pulse Resp B/P (MAP) Pulse Ox O2 Delivery O2 Flow Rate FiO2 08/02/24 07:57 98.3 63 20 122/73 (89) 100 Lab Test 08/02/24 08:14 Range/Units White Blood Count 6.6 4.4-10.8 10^3/uL Red Blood Count 3.20 L 4.5-5.90 10^6/uL Hemoglobin 10.0 L 13.5-17.5 g/dL Hematocrit 30.2 L 41.0-53.0 % Mean Corpuscular Volume 94.3 80.0-100.0 fL Mean Corpuscular Hemoglobin 31.3 28.0-32.0 pg Mean Corpuscular Hemoglobin Concent 33.2 32.0-36.0 g/dL Red Cell Distribution Width 14.8 H 11.8-14.3 % Platelet Count 358 140-450 10^3/uL Mean Platelet Volume 7.0 6.9-10.8 fL Neutrophils (%) (Auto) 57.3 37.0-80.0 % Lymphocytes (%) (Auto) 27.8 10.0-50.0 % Monocytes (%) (Auto) 5.5 0.0-12.0 % Eosinophils (%) (Auto) 8.7 H 0.0-7.0 % Basophils (%) (Auto) 0.7 0.0-2.0 % Neutrophils # (Auto) 3.8 1.6-8.6 10 ^3/uL Lymphocytes # (Auto) 1.8 0.4-5.4 10 ^3/uL Monocytes # (Auto) 0.4 0-1.3 10 ^3/uL Eosinophils # (Auto) 0.6 0-0.8 10 ^3/uL Basophils # (Auto) 0 0-0.2 10 ^3/uL Nucleated Red Blood Cells 0.1 % Prothrombin Time 10.4 9.3-11.8 sec Prothrombin Time INR 0.98 0.9-1.15 Activated Partial Thromboplast Time 29.2 24.5-34.5 SEC Sodium Level 142 136-145 mmol/L Potassium Level 3.9 3.5-5.1 mmol/L Chloride Level 109 H 98-107 mmol/L Carbon Dioxide Level 29 20-31 mmol/L Anion Gap 4 L 5-15 Blood Urea Nitrogen 14 9-23 mg/dL Creatinine 1.19 0.700-1.30 mg/dL Glomerular Filtration Rate Calc 81 >90 mL/min BUN/Creatinine Ratio 11.8 10.0-20.0 Serum Glucose 102 74-106 mg/dL Calcium Level 10.1 8.7-10.4 mg/dL Patient alert. Complaining of left lower extremity discomfort. Has a cast. Vitals stable. Was seen here for left lower extremity fracture. Reviewed his previous visit. His orthopedic surgeon was going to operate. WBC within normal limits. Anemia. Explained to the patient. Continue cardiac monitoring. Time of 1ST Reevaluation: 08:30 Reevaluation 1ST: Unchanged Patient Education/Counseling: Diagnosis, Treatment Family Education/Counseling: No Family Present Departure 1 Departure Time of Disposition: 09:22 Impression: Primary Impression: Tibia/fibula fracture Qualified Codes: S82.202A - Unspecified fracture of shaft of left tibia, initial encounter for closed fracture; S82.402A - Unspecified fracture of shaft of left fibula, initial encounter for closed fracture Disposition: ADMITTED INPATIENT Admit to: Med Surg Condition: Guarded Critical Care Note Critical Care Time?: Yes (45 min-critical care time only) Stability Stability form required: No Heart Score Heart Score: Heart Score Response (Comments) Value History N/A 0 EKG N/A 0 Age N/A 0 Risk Factors N/A 0 Troponin N/A 0 Total 0 I personally scribed for NUSRAT HERNÁNDEZ MD ([email or web address]) on 08/02/24 at 08:44. Electronically submitted by Cameron Peace [email or web address]). NUSRAT HERNÁNDEZ MD Aug 02, 2024 08:44
[2024-08-02 08:48] LABS: BUN/Creatinine Ratio 11.8 (10.0-20.0); Blood Urea Nitrogen 14 mg/dL (9-23); Glucose 102 mg/dL (74-106)
[2024-08-02 08:50] LABS: Chloride 109 mmol/L (98-107); INR 0.98 (0.9-1.15); Partial Thromboplastin Time 29.2 SEC (24.5-34.5); Prothrombin Time 10.4 sec (9.3-11.8)
--- NOTE | 2024-08-02 11:38 | DVHHP2 ---
History of Present Illness Reason for Visit: here for surgery History of Present Illness 38-year-old male no past medical history no surgical history chief complaint patient was here for surgery. By Dr. Macias. Patient was playing baseball he came down on his leg on July 07, 2024 and broke it. He states that he was supposed to get follow up outpatient and set up for surgery to get preop clearance but was unable to get it done. Patient currently denies any chest pain no shortness with the breath. He states he went to another hospital and they put a long leg posterior splint in place which he has been using splint as scheduled. According to patient patient was discharged on blood thinners he was supposed to be scheduled for surgery on the but he stated he could not get the follow up. So they told him come in for direct admission. When speaking with the patient he states he does not do any drugs he had got fentanyl IV for pain management. The ortho team felt that patient needs a drug screen because he had fentanyl in his UDS. Patient states he only smokes marijuana by history. This speak with the patient about anemia he states it is normal to be anemic for him. He unsure why he was anemic but he denies any black stools or blood in his stools. He denies any chest pain or shortness of the breath. When evaluating patient's labs and imaging CBC was unremarkable CMP unremarkable only found hemoglobin 10.0 and 30.2. I reviewed imaging results from July 07 2024 which shows tib/fib fx on left. We will admit cardiac workup for pending surgery Past Medical History Denies any medical history Past Surgical History Denies any surgical history Family History Reviewed, non-contributory to the management of this case. Past Social History Patient states he smokes marijuana but denies any drug or alcohol use Review of Systems Constitutional: No: Fever, Chills, Sweats, Weakness, Malaise, Other Eyes: No: Pain, Vision change, Conjunctivae inflammation, Eyelid inflammation, Other, Redness ENT: No: Ear pain, Ear discharge, Nose pain, Nose discharge, Nose congestion, Mouth pain, Mouth swelling, Throat pain, Throat swelling, Other Respiratory: No: Cough, Dry, Shortness of breath, SOB with excertion, Wheezing, Hemoptysis, Pleuritic Pain, Sputum, Wheezing, Other Cardiovascular: No: Chest Pain, Palpitations, Orthopnea, Paroxysmal Noc. Dyspnea, Edema, Lt Headedness, Other Gastrointestinal: No: Nausea, Vomiting, Abdominal Pain, Diarrhea, Constipation, Melena, Hematochezia, Other Genitourinary: No Dysuria, No Frequency, No Incontinence, No Hematuria, No Retention, No Other Musculoskeletal: leg pain; No: other, neck pain, shoulder pain, arm pain, back pain, hand pain, foot pain Skin: No: Rash, Lesions, Jaundice, Bruising, Other Neurological: No: Weakness, Numbness, Incoordination, Change in speech, Confusion, Seizures, Other Allergies: Coded Allergies: NO KNOWN ALLERGIES (Unverified , 07/07/24) Exam Vital Signs Vital Signs Date Time Temp Pulse Resp B/P (MAP) Pulse Ox O2 Delivery O2 Flow Rate FiO2 08/02/24 07:57 98.3 63 20 122/73 (89) 100 General Appearance: Alert, Oriented X3, Cooperative, No acute distress HEENT: Atraumatic, PERRLA, EOMI, Mucous membr. moist/pink Respiratory: Clear to auscultation, Normal air movement Cardiovascular: Regular rate, Normal S1, Normal S2, No murmurs Abdominal: Normal bowel sounds, Soft, No tenderness, No hepatospenomegaly, No masses Extremities: No clubbing, No cyanosis, No tenderness/swelling, Other (leg in long leg splint toes exposed +wiggle ) Skin: No rashes, No breakdown, No significant lesion Neuro: Other (neuro non focal ) Psych/Mental Status: Mental status NL, Mood NL Labs/Xrays I reviewed imaging from July 07, 2024 I reviewed labs, imaging CT scan abdomen pelvis, EKG and all diagnostic studies on this patient from ED records and the medical chart Labs Test 08/02/24 08:14 Range/Units White Blood Count 6.6 4.4-10.8 10^3/uL Red Blood Count 3.20 L 4.5-5.90 10^6/uL Hemoglobin 10.0 L 13.5-17.5 g/dL Hematocrit 30.2 L 41.0-53.0 % Mean Corpuscular Volume 94.3 80.0-100.0 fL Mean Corpuscular Hemoglobin 31.3 28.0-32.0 pg Mean Corpuscular Hemoglobin Concent 33.2 32.0-36.0 g/dL Red Cell Distribution Width 14.8 H 11.8-14.3 % Platelet Count 358 140-450 10^3/uL Mean Platelet Volume 7.0 6.9-10.8 fL Neutrophils (%) (Auto) 57.3 37.0-80.0 % Lymphocytes (%) (Auto) 27.8 10.0-50.0 % Monocytes (%) (Auto) 5.5 0.0-12.0 % Eosinophils (%) (Auto) 8.7 H 0.0-7.0 % Basophils (%) (Auto) 0.7 0.0-2.0 % Neutrophils # (Auto) 3.8 1.6-8.6 10 ^3/uL Lymphocytes # (Auto) 1.8 0.4-5.4 10 ^3/uL Monocytes # (Auto) 0.4 0-1.3 10 ^3/uL Eosinophils # (Auto) 0.6 0-0.8 10 ^3/uL Basophils # (Auto) 0 0-0.2 10 ^3/uL Nucleated Red Blood Cells 0.1 % Prothrombin Time 10.4 9.3-11.8 sec Prothrombin Time INR 0.98 0.9-1.15 Activated Partial Thromboplast Time 29.2 24.5-34.5 SEC Sodium Level 142 136-145 mmol/L Potassium Level 3.9 3.5-5.1 mmol/L Chloride Level 109 H 98-107 mmol/L Carbon Dioxide Level 29 20-31 mmol/L Anion Gap 4 L 5-15 Blood Urea Nitrogen 14 9-23 mg/dL Creatinine 1.19 0.700-1.30 mg/dL Glomerular Filtration Rate Calc 81 >90 mL/min BUN/Creatinine Ratio 11.8 10.0-20.0 Serum Glucose 102 74-106 mg/dL Calcium Level 10.1 8.7-10.4 mg/dL Assessment/Plan Assessment/Plan acute left lower tib fib fracture from 07/07/2024 pt had fracture comminuted minimally displaced fracture tib/fib ordered echo for medical clearance per ortho Ortho consult follow-up recs called by er doc ordered Morphine as needed for pain up as tolerated ordered lovenox DVT prophylactics/scd Diet for now Monitor for circulation compromise ordered cxr fu results preop ordered inr/type and screen cont splint for now cxr completed 07/07/2024 negative acute on chronic anemia monitor for downtrend ordered anemia panel ordered occult blood fu results acute marijuana use denies any other drug use ordered uds fen/ppx diet for now hl scd lovenox no gi ppx since no hx of gerds or gi bleed plan admit to medicine ortho consult Plan discussed with: Patient My Orders Orders - COTEKATY Leo LUTZ Procedure Category Date Status Time Admit ADMIT 08/02/24 Verified 11:33 Allergies FELICITY 08/02/24 Verified 11:33 Code Status CODE 08/02/24 Verified 11:33 Ondansetron Hcl PHA 08/02/24 Verified (Zofran) 11:45 Docusate Sodium PHA 08/02/24 Verified Capsule (Colace 11:45 Enoxaparin Sodium PHA 08/03/24 Verified (Lovenox) 10:00 Fall Risk Precautions FELICITY 08/02/[address] 11:33 Complete Blood Count LAB 08/03/24 Verified 04:00 Comprehensive LAB 08/03/24 Verified Metabolic Panel 04:00 Condition: Stable FELICITY 08/02/24 Verified 11:33 Maintain Bed Rest FELICITY 08/02/24 Verified 11:33 Morphine Sulfate PHA 08/02/24 Verified Injection 11:45 Sequential FELICITY 08/02/24 Verified Compression Device Nitroglycerin PHA 08/02/24 Verified Sublingual (Ntrostat 11:45 Stat Ekg For Chest FELICITY 08/02/24 Verified Pain 11:33 Notify Md Of Changes [facility] 08/02/24 Verified From Base 11:33 Academic Coordinator For [facility] 08/02/24 Verified 24 Hours 11:33 Emergency Dysrhythmia FELICITY 08/02/24 Verified Protocol 11:33 Rhythm Strips Once FELICITY 08/02/24 Verified Every Shift 11:33 Oxygen By Nasal RT 08/02/24 Verified Cannula 11:33 *[address] Powell CONS 08/02/24 Verified Gopi 11:33 Stool Occult Blood LAB 08/02/24 Verified 11:33 Iron Panel LAB 08/02/24 Verified 11:33 Reticulocyte Count LAB 08/02/24 Verified 11:33 Ferritin LAB 08/02/24 Verified 11:33 Lactate Dehydrogenase LAB 08/02/24 Verified 11:33 Vitamin B12 LAB 08/02/24 Verified 11:33 Folate (Folic Acid) LAB 08/02/24 Verified 11:33 Type And Screen BBK 08/02/24 Verified 11:33 Prothrombin Time W/ LAB 08/02/24 Verified INR 11:33 Date of Service: Aug 02, 2024 Billing Provider: KATY COTE DNP Common Visit Codes: [id number] INP/OBS CARE (HIGH) KATY COTE DNP Aug 02, 2024 11:38
[2024-08-02] MEDS ORDERED: NITROGLYCERIN 0.4 MG SL TAB SL PRN (11:45)
[2024-08-02 12:37] LABS: % Iron Saturation 28.5 % (20-55)
[2024-08-02 12:43] LABS: Ferritin 73.1 ng/mL (22-322); Folate (Folic Acid) 5.31 ng/mL (>5.38)
[2024-08-02 22:00] VITALS: PULSE 92; RESP 20; O2SAT 96
[2024-08-03] VITALS (11 sets, daily range): BP systolic 111–132; BP diastolic 69–80; PULSE 51–78; RESP 13–20; TEMP 97.6–98.9; O2SAT 97–100
[2024-08-03] MEDS: ONDANSETRON HCL 4 MG/2 ML VIAL IV PRN (01:09)
[2024-08-03] MEDS: MORPHINE SULFATE INJ 2 MG/ml SYRG IV PRN ×2 (01:10→20:46)
[2024-08-03 05:54] LABS: Basophils # (auto) 0 10 ^3/uL (0-0.2); Basophils % (auto) 0.3 % (0.0-2.0); Eosinophils # (auto) 0.6 10 ^3/uL (0-0.8); Eosinophils % (auto) 6.8 % (0.0-7.0); Hematocrit 29.4 % (41.0-53.0); Lymphocytes # (auto) 2.9 10 ^3/uL (0.4-5.4); Lymphocytes % (auto) 34.8 % (10.0-50.0); Mean Corpuscular Hemoglobin 31.8 pg (28.0-32.0); Mean Corpuscular Hgb Conc. 33.9 g/dL (32.0-36.0); Mean Corpuscular Volume 93.7 fL (80.0-100.0); Monocytes # (auto) 0.5 10 ^3/uL (0-1.3); Monocytes % (auto) 5.6 % (0.0-12.0); Neutrophils # (auto) 4.4 10 ^3/uL (1.6-8.6); Neutrophils % (auto) 52.5 % (37.0-80.0); Platelet Count (auto) 313 10^3/uL (140-450); Red Blood Cells 3.14 10^6/uL (4.5-5.90); Red Cell Distribution Width 14.3 % (11.8-14.3); White Blood Cell 8.4 10^3/uL (4.4-10.8)
[2024-08-03 06:21] LABS: Alanine Aminotransferase 14 U/L (7-40); Albumin 4.2 g/dL (3.2-4.8); Alkaline Phosphatase 85 U/L (46-116); Anion Gap 7 (5-15); Aspartate Aminotransferase 20 U/L (13-40); BUN/Creatinine Ratio 12.7 (10.0-20.0); Blood Urea Nitrogen 14 mg/dL (9-23); Calcium 10.2 mg/dL (8.7-10.4); Carbon Dioxide 29 mmol/L (20-31); Chloride 105 mmol/L (98-107); Glucose 88 mg/dL (74-106); Potassium 3.9 mmol/L (3.5-5.1); Sodium 141 mmol/L (136-145)
[2024-08-03 06:22] LABS: Bilirubin, Total 0.5 mg/dL (0.2-1.0); Total Protein 6.8 g/dL (5.7-8.2)
[2024-08-03 09:41] LABS: Amphetamine Screen, Urine Neg (NEGATIVE); Barbiturate Scree,Urine Neg (NEGATIVE); Benzodiazephine Screen, Urine Neg (NEGATIVE); Cannabinoid Screen, Urine Pos (NEGATIVE); Cocaine Screen, Urine Neg (NEGATIVE); Opiate Scree,Urine Neg (NEGATIVE); Phencyclidine Screen, Urine Neg (NEGATIVE)
[2024-08-03] MEDS: ENOXAPARIN SOD 40 MG/0.4 ML SYRINGE SC SCH (10:00)
[2024-08-03] MEDS ORDERED: ceFAZolin 2 GM/D5W100ml 100 ML IV ONE (10:19)
[2024-08-03] MEDS ORDERED: ONDANSETRON HCL 4 MG/2 ML VIAL ONE (10:22)
[2024-08-03] MEDS ORDERED: DexAMETHasone SOD PHOS 10MG/1ML VIAL INJ ONE (10:22)
[2024-08-03] MEDS ORDERED: GLYCOPYRROLATE 0.2 MG/ML 1ML VIAL ONE (10:22)
[2024-08-03] MEDS ORDERED: LIDOCAINE 1% INJ PF 5ML AMP ONE (10:22)
[2024-08-03] MEDS ORDERED: KETOROLAC TROMETH 30 MG/ML 1ML VIAL ONE (10:22)
[2024-08-03] MEDS ORDERED: PROPOFOL 10 MG/ML 20 ML IV ONE ×4 (10:22→13:22)
--- NOTE | 2024-08-03 10:22 | DVHSR ---
APPROVED REPORT EXAM: Two-dimensional and M-mode echocardiogram with Doppler and color Doppler. Blood Pressure: 125/77 mmHg INDICATION Pre-Op RISK FACTORS Height: 5'9, Weight: 138 DIMENSIONS LVDd5.0 (3.8-5.7cm)LA (2D)3.8 (1.9-4.0cm)Aortic Root3.5 (2.0-3.7cm) LVDs3.4 (2.5-4.0cm)LA (MM) (1.9-4.0cm)Aortic Cusp Exc2.0 (1.5-2.0cm) EF (%) 58.0 (55-70%)Rt. Atrium3.6 (1.9-4.0cm)Asc. Aorta cm IVSd0.8 (0.7-1.1cm)RV (D) (1.8-2.4cm) PWd0.9 (0.7-1.1cm) Mitral Valve MitralMitral Stenosis E wave0.68m/sMV Mean GR.mmHg A wave0.55m/sMV Peak GR.mmHg E/A ratio1.22D MVAcm2 DECEL [id number] 1/2 Timems Aortic Valve Aortic ValveAortic Stenosis V11.32m/Jm Mean GR.4mmHg V21.40m/Jm Peak GR.8mmHg LVOT Diameter2.1 (1.8-2.4cm)Doppler AVA3.26cm2 Pulmonic Valve V21.11m/s Tricuspid Valve TR Velocity2.19m/s [id number] Conclusion Normal normal left ventricular size and dimension. Normal left ventricular systolic function estimat ed ejection fraction 55%. Normal diastolic function. Normal right ventricular size and dimension. Normal right ventricular systolic function. Normal biatrial size and dimension. Normal aortic valve structure and function. Normal mitral valve structure and function. Normal tricuspid valve structure and function. The pulmonary valve is grossly normal. No pericardial effusion.
[2024-08-03] MEDS: CELECOXIB 100 MG CAP PO ONE (10:45)
[2024-08-03] MEDS: ACETAMINOPHEN IV 1000 MG/100ML (10MG/ML) IV ONE (10:45)
[2024-08-03] MEDS: GABAPENTIN 400 MG CAP PO ONE (10:45)
--- NOTE | 2024-08-03 11:01 | DVHHP2 ---
History Allergies: Coded Allergies: NO KNOWN ALLERGIES (Unverified , 07/07/24) Chief Complaint: left knee pain, inability to bear weight Present Illness(Onset/Duration Fall playing baseball on 07/07/24 with left lateral knee pain and inability to bear weight Past Surgical History none declared Medications none declared Physical Exam Skin intact Chest and Lungs CTA B Heart RRR neg MRG Abdomen NBS ND NT Extremities Let knee mild swelling NVI ROM,stability not assessed due to fracture Vital Signs Vital Signs Date Time Temp Pulse Resp B/P (MAP) Pulse Ox O2 Delivery O2 Flow Rate FiO2 08/03/24 09:44 63 16 117/80 08/03/24 08:30 98.1 100 98.1 08/03/24 01:36 Room Air* 0 21 Impressions/Description 38M, left lateral tibial plateau depression fracture Plan pre op meidcal and cardiac clearance surgery ORIF left lateral tibial plateau fracture NORY GUY MD Aug 03, 2024 11:01
--- NOTE | 2024-08-03 11:23 | DVHINCON2 ---
Date Seen: Aug 03, 2024 Referring Physician MD Negar Reason for Consultation Cardiac risk stratification History of Present Illness This is a pleasant 38-year-old man who presented to the emergency room with a chief complaint left lower extremity left lower extremity pain. The patient reports he was playing basketball experienced a mechanical fall injury where he was diagnosed with a lateral tibial plateau fracture in 07/08/2024. At that time, he presented to this facility where he was admitted and subsequently discharge home to allow swelling to dissipate and an eventual ORIF. Cardiology consulted for cardiac risk stratification prior to procedure. Denies chest pain, palpitations, diaphoresis, shortness of breath, dizziness, or syncopal events. Denies family history for cardiovascular disease. He underwent a 12 lead electrocardiogram revealing a normal sinus rhythm. Significant medical history includes anxiety and cannabinoid use. Past Medical History Past medical history reviewed. No other significant than mentioned above. Past Surgical History Teeth Family History: Patient reports no known family medical history. Family History Family history reviewed. Not significant for CV disease. Social History Denies the use of alcohol or tobacco use. Admits to cannabinoid use. Allergies: Coded Allergies: NO KNOWN ALLERGIES (Unverified , 07/07/24) Home Meds Active Scripts Apixaban Base (ELIQUIS) 5 Mg Tab, 5 MG PO BID, #30 TAB Prov:DANDRE ALEXIS MD 07/13/24 Oxycodone W/ Acetaminophen (Percocet 5/325MG) 1 Tab Tb, 2 TAB PO QID PRN, #60 TAB Prov:DANDRE ALEXIS MD 07/13/24 Home Meds Denies any home medications. Current Medications Current Medications Medications (Trade) Dose Ordered Sig/Martin Route PRN Reason Start Time Stop Time Status Last Admin Ondansetron HCl (Zofran) 4 mg Q4HP PRN IV NAUSEA / VOMITING 08/02/24 11:45 08/03/24 01:09 Docusate Sodium (Colace Capsule) 100 mg BIDPRN PRN PO FOR CONSTIPATION 08/02/24 11:45 Enoxaparin Sodium (Lovenox) 40 mg DAILY SC 08/03/24 10:00 Morphine Sulfate 2 mg Q4HPRN PRN IV SEVERE PAIN (7-10 PAIN SCALE) 08/02/24 11:45 08/03/24 09:44 Nitroglycerin (Ntrostat Sublingual) 0.4 mg Q5MINP PRN SL FOR CHEST PAIN 08/02/24 11:45 Review of Systems Constitutional: No symptom reported Ears, Nose, & Throat: No symptom reported Eyes: No symptom reported Neurological: No symptoms reported Pulmonary/Respiratory: No symptom reported Cardiovascular: No symptom reported Gastrointestinal: No symptom reported Genitourinary: No symptom reported Musculoskeletal: LLE pain Skin: No symptom reported Psychiatric: No symptom reported Endocrine: No symptom reported Hemotologic/Lymphatic: No symptom reported Vital Signs Vital Signs Date Time Temp Pulse Resp B/P (MAP) Pulse Ox O2 Delivery O2 Flow Rate FiO2 08/03/24 09:44 63 16 117/80 08/03/24 08:30 98.1 100 98.1 08/03/24 01:36 Room Air* 0 21 Physical Exam General Appearance: Cooperative. Well developed. Well nourished. In no acute distress Head Exam: Normal inspection Neck Exam: Normal inspection. Non-tender. Normal alignment Pulmonary/Respiratory: Chest non-tender. Clear bilateral breath sounds Cardiovascular/Chest: Regular rate and rhythm. S1, S2. NSR. No murmurs. No JVD. Peripheral Pulses: 2+ Radial (R). 2+ Radial (L). 2+ Pedal (R). 2+ Pedal (L) Abdominal Exam: Normal bowel sounds. Soft. Nontender. No hepatospenomegaly. No masses Ankle Exam: Negative ankle edema Lower extremities: Negative lower extremity edema Neuro/Mental Status: A&O x4. Coherent Thoughts/Psych: Normal thought pattern. Appropriate mood and affect. Good judgement and insight Appearance: In no acute distress Skin Exam: Normal inspection. Normal color. Warm. Dry Labs/Diagnostic Data Labs Test 08/03/24 09:15 08/03/24 04:57 08/02/24 08:14 Range/Units Urine Opiates Screen Neg NEGATIVE Urine Fentanyl Screen Neg NEGATIVE Urine Barbiturates Screen Neg NEGATIVE Urine Phencyclidine Screen Neg NEGATIVE Urine Amphetamines Screen Neg NEGATIVE Urine Benzodiazepines Screen Neg NEGATIVE Urine Cocaine Screen Neg NEGATIVE Urine Cannabinoids Screen Pos NEGATIVE White Blood Count 8.4 # 4.4-10.8 10^3/uL Red Blood Count 3.14 L 4.5-5.90 10^6/uL Hemoglobin 10.0 L 13.5-17.5 g/dL Hematocrit 29.4 L 41.0-53.0 % Mean Corpuscular Volume 93.7 80.0-100.0 fL Mean Corpuscular Hemoglobin 31.8 28.0-32.0 pg Mean Corpuscular Hemoglobin Concent 33.9 32.0-36.0 g/dL Red Cell Distribution Width 14.3 11.8-14.3 % Platelet Count 313 140-450 10^3/uL Mean Platelet Volume 7.7 6.9-10.8 fL Neutrophils (%) (Auto) 52.5 37.0-80.0 % Lymphocytes (%) (Auto) 34.8 10.0-50.0 % Monocytes (%) (Auto) 5.6 0.0-12.0 % Eosinophils (%) (Auto) 6.8 0.0-7.0 % Basophils (%) (Auto) 0.3 0.0-2.0 % Neutrophils # (Auto) 4.4 1.6-8.6 10 ^3/uL Lymphocytes # (Auto) 2.9 0.4-5.4 10 ^3/uL Monocytes # (Auto) 0.5 0-1.3 10 ^3/uL Eosinophils # (Auto) 0.6 0-0.8 10 ^3/uL Basophils # (Auto) 0 0-0.2 10 ^3/uL Nucleated Red Blood Cells 0.0 % Sodium Level 141 136-145 mmol/L Potassium Level 3.9 3.5-5.1 mmol/L Chloride Level 105 98-107 mmol/L Carbon Dioxide Level 29 20-31 mmol/L Anion Gap 7 5-15 Blood Urea Nitrogen 14 9-23 mg/dL Creatinine 1.10 0.700-1.30 mg/dL Glomerular Filtration Rate Calc 89 >90 mL/min BUN/Creatinine Ratio 12.7 10.0-20.0 Serum Glucose 88 74-106 mg/dL Calcium Level 10.2 8.7-10.4 mg/dL Total Bilirubin 0.5 0.2-1.0 mg/dL Aspartate Amino Transferase (AST) 20 13-40 U/L Alanine Aminotransferase (ALT) 14 7-40 U/L Alkaline Phosphatase 85 46-116 U/L Total Protein 6.8 5.7-8.2 g/dL Albumin 4.2 3.2-4.8 g/dL Reticulocyte Count (auto) 0.95 0.5-1.5 % Prothrombin Time 10.4 9.3-11.8 sec Prothrombin Time INR 0.98 0.9-1.15 Activated Partial Thromboplast Time 29.2 24.5-34.5 SEC Iron Level 81 65-175 ug/dL Total Iron Binding Capacity 284 250-425 ug/dL Percent Iron Saturation 28.5 20-55 % Ferritin 73.1 22-322 ng/mL Lactate Dehydrogenase 282 H 120-246 U/L Vitamin B12 Level 324 211-911 pg/mL Folic Acid 5.31 >5.38 ng/mL Assessment Preprocedural cardiovascular examination Left lateral tibial plateau fracture Cannabinoid use Plan/Recommendation (Dr. Terrazas) Echocardiogram reveals an EF of 55%. Revised cardiac risk index (Juan Diego criteria): Class I at 3.9% 30-day risk of , HI or cardiac arrest. CXR revealed no acute cardiopulmonary disease. Patient has no underlying history of congestive heart failure, coronary artery disease, and has an optimal functional capacity. Per Cardiology standpoint, the patient is at an acceptable-risk for moderate-risk surgery. There is no additional cardiac workup indicated prior to surgery. Thank you for allowing us to care for this patient. Please call with any questions or concerns. This medical document was created using an electronic medical record system with voice recognition software and computerized dictation system. Although this document has been carefully reviewed, there might still be some phonetic and typographical errors. Occasional wrong-word or ``sound-alike substitutions may have occurred due to the inherent limitations of voice recognition software. These areas are purely typographical due to imperfections of the software programs and do not reflect any compromise in the patient's medical care. Please read the chart carefully and recognize, using context, where these substitutions have occurred. Plan discussed with: Patient, Other Date of Service: Aug 03, 2024 Billing Provider: LEX TERRAZAS MD Cardiology Common Codes: [id number] INP/OBS CARE (High) DEVIN LOPEZ STAFF DEVELOPER Aug 03, 2024 11:23
--- NOTE | 2024-08-03 11:29 | ECG ---
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
[2024-08-03 11:43] LABS: Magnesium 1.9 mg/dL (1.6-2.6)
[2024-08-03] MEDS ORDERED: ePHEDrine SULFATE 50 MG/ML AMP ONE (12:21)
[2024-08-03] MEDS: VANCOMYCIN HCL 1000 MG VL ONE (13:05)
--- NOTE | 2024-08-03 13:30 | DVHOP2 ---
Operative Report - 2 Report Details Date: 08/03/24 Preop Diagnosis: left lateral tibial plateau fracture Postop Diagnosis: same Surgeon: Abhi Guy MD Med Aide: none Anesthesiologist: Dr Smith Anesthesia: Regional Drains: none Implant: lateral tibial plateau precontoured plate Consent: The patient was informed of the risks and benefits of the procedure. These include but are not limited to complications of anesthesia, postoperative infection, incomplete relief of symptoms, recurrence of symptoms, damage to blood vessels, nerves and tendons, deep venous thrombosis, pulmonary embolism and possible need for repeat surgery in the future. Complications: none Estimated Blood Loss: 50cc Fluids: 500 cc crystalloid Findings: lateral tibial plateau depression fracture Indications for Surgery: displaced fracture lateral tibial plateau Name of Procedure Performed ORIF left knee lateral tibial plateau Procedure Details Procedure Details: Patient brought to the operating room given Ancef 2 g IV piggyback preoperatively spinal anesthetic Dr. Smith without complication fracture table OSI standard OR table a nonsterile tourniquet left thigh sterile prep and drape the left lower extremity time-out performed comprehension left side correct side open reduction internal fixation left knee lateral tibial plateau depression type fracture correct procedure after review of operative consent history and physical my initials and left knee as well as fluoro view showing left knee fracture exsanguination with Esmarch tourniquet elevated to 250 mm Hg total tourniquet time 45 minutes longitudinal incision made for future potential need for total knee arthroplasty midline sharp dissection through skin down to deep fascia elevation along fascial plane laterally tethering of skin with suture to the posterolateral aspect of posterolateral skin needle point Bovie used to divide lateral fascia leaving 1 cm cuff off the tibia then curving transversely posteriorly across the IP band only half to 2/3 of the ITB band to prevent retraction elevation of this fascial layer exposing the capsule capsule and divided mid meniscus or just distal to the meniscus leaving distal cuff horizontal mattress suture 2-0 Vicryl placed through the periphery of the capsule and lateral meniscus and pulled proximally to allow visualization of the joint there is a hematoma within the joint which is slightly creamy colored risk of infection therefore cultures taken x3 irrigation of the knee then performed osteotome used to refresh the fracture line and lateral and proximal lateral tibia opened and a bone tamp used to elevate the articular surface primarily posteriorly then bone graft demineralized bone matrix placed within the defect then a precontoured lateral tibial plateau plate and applied and fixed with locking screws C-arm fluoro AP and lateral showed anatomic alignment of fracture good placement of plate tourniquet let down excellent hemostasis noted closure repair of lateral meniscus and capsule to the proximal holes within the plate and then repair of deep fascia with simple interrupted 0 Vicryl repair of skin subcutaneous 2-0 Vicryl toño fluffs ABD Jose Roberto wrap knee immobilizer nonweightbearing six weeks follow up orthopedic office two weeks thank you much Specimen: Cx x3 Condition Stable Disposition Still a Patient ABHI GUY MD Aug 03, 2024 13:30
[2024-08-03] MEDS ORDERED: oxyCODONE HCL 5MG TAB PO PRN (13:45)
[2024-08-03] MEDS ORDERED: FLUMAZENIL 0.1 MG/ML INJ 10ML MDV IV PRN (13:45)
[2024-08-03] MEDS ORDERED: HYDROmorphone HCL 2 MG/ML VL/or syr IV PRN (13:45)
[2024-08-03] MEDS ORDERED: ePHEDrine SULFATE 50 MG/ML AMP IV PRN (13:45)
[2024-08-03] MEDS ORDERED: ONDANSETRON HCL 4 MG/2 ML VIAL IV PRN (13:45)
[2024-08-03] MEDS ORDERED: hydrALAZINE HCL 20 MG/ML VL IV PRN (13:45)
[2024-08-03] MEDS ORDERED: fentaNYL CITRATE 100 MCG/2 ML VL IV PRN (13:45)
[2024-08-03] MEDS ORDERED: NALOXONE HCL 0.4 MG/ML VIAL IV PRN (13:45)
--- NOTE | 2024-08-03 14:18 | DVHPN2 ---
Reviewed: Care Plan, H&P, Labs, Medications, Previous Orders, Radiology Changes from previous H/P or p: No Changes Eyes: No Pain, No Vision change, No Conjunctivae inflammation, No Eyelid inflammation, No Other, No Redness ENT: No Ear pain, No Ear discharge, No Nose pain, No Nose discharge, No Nose congestion, No Mouth pain, No Mouth swelling, No Throat pain, No Throat swelling, No Other Cardiovascular: No Chest Pain, No Palpitations, No Orthopnea, No Paroxysmal Noc. Dyspnea, No Edema, No Lt Headedness, No Other Respiratory: No Cough, No Dry, No Shortness of breath, No SOB with excertion, No Wheezing, No Hemoptysis, No Pleuritic Pain, No Sputum, No Other Gastrointestinal: No Nausea, No Vomiting, No Abdominal Pain, No Diarrhea, No Constipation, No Melena, No Hematochezia, No Other Genitourinary: No Dysuria, No Frequency, No Incontinence, No Hematuria, No Retention, No Other Musculoskeletal: No other, No neck pain, No shoulder pain, No arm pain, No back pain, No hand pain; leg pain; No foot pain Skin: No Rash, No Lesions, No Jaundice, No Bruising, No Other Objective Vitals Vital Signs Date Time Temp Pulse Resp B/P (MAP) Pulse Ox O2 Delivery O2 Flow Rate FiO2 08/03/24 09:44 63 16 117/80 08/03/24 08:30 98.1 100 98.1 08/03/24 07:45 Room Air* 0 21 Intake/Output Intake and Output 08/03/24 07:00 Intake Total 0 ml Output Total 370 ml Balance -370 ml Intake Oral 0 ml Output Urine Total 370 ml Medications Current Medications Medications Dose Ordered Sig/Martin Route Start Time Stop Time Status Last Admin Dose Admin Ondansetron HCl 4 mg Q4HP PRN IV 08/02/24 11:45 08/03/24 01:09 4 MG Docusate Sodium 100 mg BIDPRN PRN PO 08/02/24 11:45 Enoxaparin Sodium 40 mg DAILY SC 08/03/24 10:00 Morphine Sulfate 2 mg Q4HPRN PRN IV 08/02/24 11:45 08/03/24 09:44 2 MG Nitroglycerin 0.4 mg Q5MINP PRN SL 08/02/24 11:45 Potassium Chloride/Dextrose/ Sod Cl 1,000 ml @ 150 mls/hr Q6H40M IV 08/03/24 13:30 Cefazolin Sodium 50 ml @ 50 mls/hr Q8HR IV 08/03/24 14:00 08/03/24 22:59 Hydralazine HCl 5 mg Q10M PRN IV 08/03/24 13:45 08/03/24 14:36 Ephedrine Sulfate 10 mg Q10M PRN IV 08/03/24 13:45 08/03/24 14:26 Hydromorphone HCl 0.5 mg Q10M PRN IV 08/03/24 13:45 08/03/24 14:26 Oxycodone HCl 10 mg ONCE PRN PO 08/03/24 13:45 08/03/24 18:00 Laboratory Results Laboratory Tests 08/03/24 04:57 Chemistry Test 08/03/24 04:57 Albumin 4.2 g/dL (3.2-4.8) Calcium Level 10.2 mg/dL (8.7-10.4) Magnesium Level 1.9 mg/dL (1.6-2.6) Total Protein 6.8 g/dL (5.7-8.2) Lipid panel Test 08/03/24 04:57 Cholesterol Level 227 mg/dL (< 200) H HDL Cholesterol 43 mg/dL (40-59) Triglycerides Level 163 mg/dL (< 150) H Cardiac Markers Test 08/03/24 04:57 B-Type Natriuretic Peptide 17.43 pg/mL (0-100) LFT Test 08/03/24 04:57 Alanine Aminotransferase (ALT) 14 U/L (7-40) Alkaline Phosphatase 85 U/L (46-116) Aspartate Amino Transferase (AST) 20 U/L (13-40) Total Bilirubin 0.5 mg/dL (0.2-1.0) HgA1c, TSH Test 08/03/24 04:57 Thyroid Stimulating Hormone (TSH) 1.84 uIU/mL (0.55-4.78) Labs and/or images reviewed: Labs reviewed by me, Image(s) reviewed by me Assessment/Plan Assessment/Plan Fracture left tibia plateau status post ORIF left knee lateral tibial plateau Dilaudid, Acute dehydration: IV fluids Plan discussed with: Patient Date of Service: Aug 03, 2024 Billing Provider: DANDRE ALEXIS MD Common Visit Codes: [id number] INP/OBS CARE(HIGH) DANDRE ALEXIS MD Aug 03, 2024 14:18
--- NOTE | 2024-08-03 14:53 | DVH ---
C-ARM FLUOROSCOPY: PROCEDURE: Left tibia ORIF FLUOROSCOPY TIME: 11.5 seconds DAP: 0.41 mgy FINDINGS: Spot intraoperative C arm radiographs demonstrating left tibia ORIF. IMPRESSION: Please refer to surgical report for detailed findings.
[2024-08-03] MEDS: ceFAZolin 1GM/50ML 50 ML IV SCH (16:45)
[2024-08-03] MEDS: D5W/SOD CHL 0.45%/KCL 20MEQ 1,000 ML IV SCH (16:46)
[2024-08-03] MEDS: DOCUSATE SOD 100 MG CAP PO PRN (20:50)
[2024-08-04] VITALS (8 sets, daily range): BP systolic 111–130; BP diastolic 55–75; PULSE 62–72; RESP 17–20; TEMP 97.7–98.8; O2SAT 98–100
[2024-08-04 06:57] LABS: Basophils # (auto) 0 10 ^3/uL (0-0.2); Basophils % (auto) 0.1 % (0.0-2.0); Eosinophils # (auto) 0 10 ^3/uL (0-0.8); Hematocrit 27.8 % (41.0-53.0); Hemoglobin 9.4 g/dL (13.5-17.5); Lymphocytes # (auto) 1.4 10 ^3/uL (0.4-5.4); Lymphocytes % (auto) 9.5 % (10.0-50.0); Mean Corpuscular Hemoglobin 31.5 pg (28.0-32.0); Mean Corpuscular Hgb Conc. 33.8 g/dL (32.0-36.0); Mean Corpuscular Volume 93.3 fL (80.0-100.0); Monocytes % (auto) 6.9 % (0.0-12.0); Neutrophils # (auto) 12.3 10 ^3/uL (1.6-8.6); Neutrophils % (auto) 83.5 % (37.0-80.0); Platelet Count (auto) 267 10^3/uL (140-450); Red Blood Cells 2.98 10^6/uL (4.5-5.90); White Blood Cell 14.7 10^3/uL (4.4-10.8)
--- NOTE | 2024-08-04 11:18 | DVHPN2 ---
Reviewed: Care Plan, H&P, Labs, Medications, Previous Orders, Radiology Changes from previous H/P or p: No Changes Eyes: No Pain, No Vision change, No Conjunctivae inflammation, No Eyelid inflammation, No Other, No Redness ENT: No Ear pain, No Ear discharge, No Nose pain, No Nose discharge, No Nose congestion, No Mouth pain, No Mouth swelling, No Throat pain, No Throat swelling, No Other Cardiovascular: No Chest Pain, No Palpitations, No Orthopnea, No Paroxysmal Noc. Dyspnea, No Edema, No Lt Headedness, No Other Respiratory: No Cough, No Dry, No Shortness of breath, No SOB with excertion, No Wheezing, No Hemoptysis, No Pleuritic Pain, No Sputum, No Other Gastrointestinal: No Nausea, No Vomiting, No Abdominal Pain, No Diarrhea, No Constipation, No Melena, No Hematochezia, No Other Genitourinary: No Dysuria, No Frequency, No Incontinence, No Hematuria, No Retention, No Other Musculoskeletal: No other, No neck pain, No shoulder pain, No arm pain, No back pain, No hand pain; leg pain; No foot pain Skin: No Rash, No Lesions, No Jaundice, No Bruising, No Other Objective Vitals Vital Signs Date Time Temp Pulse Resp B/P (MAP) Pulse Ox O2 Delivery O2 Flow Rate FiO2 08/04/24 10:35 67 17 101/68 08/04/24 09:14 97.7 98 97.7 08/03/24 20:00 Room Air* 0 21 Intake/Output Intake and Output 08/04/24 07:00 Intake Total 1560 ml Output Total 1300 ml Balance 260 ml Intake Oral 400 ml IV Total 1160 ml Output Urine Total 1300 ml Medications Current Medications Medications Dose Ordered Sig/Martin Route Start Time Stop Time Status Last Admin Dose Admin Ondansetron HCl 4 mg Q4HP PRN IV 08/02/24 11:45 08/03/24 01:09 4 MG Docusate Sodium 100 mg BIDPRN PRN PO 08/02/24 11:45 08/03/24 20:50 100 MG Enoxaparin Sodium 40 mg DAILY SC 08/03/24 10:00 Nitroglycerin 0.4 mg Q5MINP PRN SL 08/02/24 11:45 Potassium Chloride/Dextrose/ Sod Cl 1,000 ml @ 150 mls/hr Q6H40M IV 08/03/24 13:30 08/04/24 10:25 150 MLS/HR Morphine Sulfate 3 mg Q4HPRN PRN IV 08/03/24 20:45 08/07/24 12:00 08/04/24 10:35 3 MG Laboratory Results Laboratory Tests 08/03/24 04:57 08/04/24 05:18 Labs and/or images reviewed: Labs reviewed by me, Image(s) reviewed by me Assessment/Plan Assessment/Plan Fracture left tibia plateau status post ORIF lateral tibial plateau left knee by Dr. Ordonez on 08-03-24 continue Dilaudid, Acute dehydration: IV fluids Patient was discharged from this hospital on 07/14/2024 for the same injury Plan discussed with: Patient My Orders Orders - DANDRE ALEXIS MD Procedure Category Date Status Time Regular Diet DIET 08/03/24 Transmitted Dinner Date of Service: Aug 04, 2024 Billing Provider: DANDRE ALEXIS MD Common Visit Codes: [id number] INP/OBS CARE(HIGH) DANDRE ALEXIS MD Aug 04, 2024 11:18
--- NOTE | 2024-08-04 18:37 | DVHPN2 ---
Date of Progress Note Date of Progress Note Date of Progress Note: 08/04/24 Date of Admission Date of Admission Date of Admission: Date of Admission: Aug 02, 2024 at 11:33 Overnight Events Overnight events Overnight Events yady pain on PO meds, able to void , no [place] Family History Family History Family History: Patient reports no known family medical history. Allergies: Coded Allergies: NO KNOWN ALLERGIES (Unverified , 07/07/24) Home Meds Active Scripts Apixaban Base (ELIQUIS) 5 Mg Tab, 5 MG PO BID, #30 TAB Prov:DANDRE ALEXIS MD 07/13/24 Oxycodone W/ Acetaminophen (Percocet 5/325MG) 1 Tab Tb, 2 TAB PO QID PRN, #60 TAB Prov:DANDRE ALEXIS MD 07/13/24 Current Medications Current Medications Medications (Trade) Dose Ordered Sig/Martin Route PRN Reason Start Time Stop Time Status Last Admin Morphine Sulfate 3 mg Q4HPRN PRN IV SEVERE PAIN (7-10 PAIN SCALE) 08/03/24 20:45 08/07/24 12:00 08/04/24 16:07 Potassium Chloride 20 meq/ Dextrose/Sodium Chloride 1,010 ml @ 150 mls/hr Q6H44M IV 08/04/24 17:45 Physical Examination General Examination: Last Vital sign Vital Signs Date Time Temp Pulse Resp B/P (MAP) Pulse Ox O2 Delivery O2 Flow Rate FiO2 08/04/24 16:47 98.3 66 17 111/61 (78) 99 98.3 08/04/24 07:45 Room Air* 0 21 General: General: No apparent distress, appears comfortable. Cooperative. Extremities: Left knee, dressing changed, no further drainage, NVI, in knee immobilizer Skin: no further drainage Neurological Examination: Neurological Examination: Mental Status: Cranial Nerves: Motor Examination: Reflexes: Sensory: Coordination: Gait: NVI Labs: Labs: Laboratory Tests Test 08/02/24 08:14 08/03/24 04:57 08/03/24 09:15 08/04/24 05:18 Range/Units White Blood Count 6.6 8.4 # 14.7 #H 4.4-10.8 10^3/uL Red Blood Count 3.20 L 3.14 L 2.98 L 4.5-5.90 10^6/uL Hemoglobin 10.0 L 10.0 L 9.4 L 13.5-17.5 g/dL Hematocrit 30.2 L 29.4 L 27.8 L 41.0-53.0 % Mean Corpuscular Volume 94.3 93.7 93.3 80.0-100.0 fL Mean Corpuscular Hemoglobin 31.3 31.8 31.5 28.0-32.0 pg Mean Corpuscular Hemoglobin Concent 33.2 33.9 33.8 32.0-36.0 g/dL Red Cell Distribution Width 14.8 H 14.3 14.0 11.8-14.3 % Platelet Count 358 313 267 140-450 10^3/uL Mean Platelet Volume 7.0 7.7 7.9 6.9-10.8 fL Neutrophils (%) (Auto) 57.3 52.5 83.5 H 37.0-80.0 % Lymphocytes (%) (Auto) 27.8 34.8 9.5 L 10.0-50.0 % Monocytes (%) (Auto) 5.5 5.6 6.9 0.0-12.0 % Eosinophils (%) (Auto) 8.7 H 6.8 0.0 0.0-7.0 % Basophils (%) (Auto) 0.7 0.3 0.1 0.0-2.0 % Neutrophils # (Auto) 3.8 4.4 12.3 H 1.6-8.6 10 ^3/uL Lymphocytes # (Auto) 1.8 2.9 1.4 0.4-5.4 10 ^3/uL Monocytes # (Auto) 0.4 0.5 1.0 0-1.3 10 ^3/uL Eosinophils # (Auto) 0.6 0.6 0 0-0.8 10 ^3/uL Basophils # (Auto) 0 0 0 0-0.2 10 ^3/uL Nucleated Red Blood Cells 0.1 0.0 0.0 % Reticulocyte Count (auto) 0.95 0.5-1.5 % Prothrombin Time 10.4 9.3-11.8 sec Prothrombin Time INR 0.98 0.9-1.15 Activated Partial Thromboplast Time 29.2 24.5-34.5 SEC Sodium Level 142 141 136-145 mmol/L Potassium Level 3.9 3.9 3.5-5.1 mmol/L Chloride Level 109 H 105 98-107 mmol/L Carbon Dioxide Level 29 29 20-31 mmol/L Anion Gap 4 L 7 5-15 Blood Urea Nitrogen 14 14 9-23 mg/dL Creatinine 1.19 1.10 0.700-1.30 mg/dL Glomerular Filtration Rate Calc 81 89 >90 mL/min BUN/Creatinine Ratio 11.8 12.7 10.0-20.0 Serum Glucose 102 88 74-106 mg/dL Calcium Level 10.1 10.2 8.7-10.4 mg/dL Iron Level 81 65-175 ug/dL Total Iron Binding Capacity 284 250-425 ug/dL Percent Iron Saturation 28.5 20-55 % Ferritin 73.1 22-322 ng/mL Lactate Dehydrogenase 282 H 120-246 U/L Vitamin B12 Level 324 211-911 pg/mL Folic Acid 5.31 >5.38 ng/mL Magnesium Level 1.9 1.6-2.6 mg/dL Total Bilirubin 0.5 0.2-1.0 mg/dL Aspartate Amino Transferase (AST) 20 13-40 U/L Alanine Aminotransferase (ALT) 14 7-40 U/L Alkaline Phosphatase 85 46-116 U/L B-Type Natriuretic Peptide 17.43 0-100 pg/mL Total Protein 6.8 5.7-8.2 g/dL Albumin 4.2 3.2-4.8 g/dL Triglycerides Level 163 H < 150 mg/dL Cholesterol Level 227 H < 200 mg/dL LDL Cholesterol 153 H < 100 mg/dL HDL Cholesterol 43 40-59 mg/dL Thyroid Stimulating Hormone (TSH) 1.84 0.55-4.78 uIU/mL Urine Opiates Screen Neg NEGATIVE Urine Fentanyl Screen Neg NEGATIVE Urine Barbiturates Screen Neg NEGATIVE Urine Phencyclidine Screen Neg NEGATIVE Urine Amphetamines Screen Neg NEGATIVE Urine Benzodiazepines Screen Neg NEGATIVE Urine Cocaine Screen Neg NEGATIVE Urine Cannabinoids Screen Pos NEGATIVE Assessment/Plan Assessment/Plan Assessment and Plan:Jason Moreno is a 38 year old male POD 1 s/p ORIF left lateral tibial plateau fracture 1) drfessing changed today 2) knee immobilizer applied today 3) dc planning Plan discussed with: Patient NORY GUY MD Aug 04, 2024 18:37
[2024-08-04] MEDS: POTASSIUM CHLORIDE 20 MEQ in D5W/SOD CHL 0.45% 1,000 ML IV SCH (18:51)
[2024-08-05] VITALS (7 sets, daily range): BP systolic 111–134; BP diastolic 64–82; PULSE 66–81; RESP 18–20; TEMP 97.7–98.9; O2SAT 99–100
[2024-08-05 07:40] LABS: Basophils # (auto) 0.1 10 ^3/uL (0-0.2); Basophils % (auto) 0.7 % (0.0-2.0); Eosinophils # (auto) 0.2 10 ^3/uL (0-0.8); Hemoglobin 9.1 g/dL (13.5-17.5); Lymphocytes % (auto) 17.9 % (10.0-50.0); Mean Corpuscular Hemoglobin 31.7 pg (28.0-32.0); Mean Corpuscular Hgb Conc. 33.8 g/dL (32.0-36.0); Monocytes # (auto) 0.9 10 ^3/uL (0-1.3); Monocytes % (auto) 7.8 % (0.0-12.0); Neutrophils % (auto) 71.6 % (37.0-80.0); Nucleated Red Blood Cells % 0.1 %; Platelet Count (auto) 244 10^3/uL (140-450); Red Blood Cells 2.87 10^6/uL (4.5-5.90); Red Cell Distribution Width 14.7 % (11.8-14.3); White Blood Cell 11.2 10^3/uL (4.4-10.8)
--- NOTE | 2024-08-05 09:55 | DVHPN2 ---
Date of Progress Note Date of Progress Note Date of Progress Note: 08/05/24 Date of Admission Date of Admission Date of Admission: Date of Admission: Aug 02, 2024 at 11:33 Overnight Events Overnight events Overnight Events Pt yady pain on PO meds Family History Family History Family History: Patient reports no known family medical history. Allergies: Coded Allergies: NO KNOWN ALLERGIES (Unverified , 07/07/24) Home Meds Active Scripts Apixaban Base (ELIQUIS) 5 Mg Tab, 5 MG PO BID, #30 TAB Prov:DANDRE ALEXIS MD 07/13/24 Oxycodone W/ Acetaminophen (Percocet 5/325MG) 1 Tab Tb, 2 TAB PO QID PRN, #60 TAB Prov:DANDRE ALEXIS MD 07/13/24 Current Medications Current Medications Medications (Trade) Dose Ordered Sig/Martin Route PRN Reason Start Time Stop Time Status Last Admin Potassium Chloride 20 meq/ Dextrose/Sodium Chloride 1,010 ml @ 150 mls/hr Q6H44M IV 08/04/24 17:45 08/05/24 03:49 Physical Examination General Examination: Last Vital sign Vital Signs Date Time Temp Pulse Resp B/P (MAP) Pulse Ox O2 Delivery O2 Flow Rate FiO2 08/05/24 09:46 70 20 121/74 08/05/24 09:00 98.6 100 98.6 08/04/24 20:00 Room Air* 0 21 General: General: No apparent distress, appears comfortable. Cooperative. Extremities: Left knee, dressing dry, min swelling, NVI Neurological Examination: Neurological Examination: Mental Status: Cranial Nerves: Motor Examination: Reflexes: Sensory: Coordination: Gait: Labs: Labs: Laboratory Tests Test 08/02/24 08:14 08/03/24 04:57 08/03/24 09:15 08/04/24 05:18 Range/Units White Blood Count 6.6 8.4 # 14.7 #H 4.4-10.8 10^3/uL Red Blood Count 3.20 L 3.14 L 2.98 L 4.5-5.90 10^6/uL Hemoglobin 10.0 L 10.0 L 9.4 L 13.5-17.5 g/dL Hematocrit 30.2 L 29.4 L 27.8 L 41.0-53.0 % Mean Corpuscular Volume 94.3 93.7 93.3 80.0-100.0 fL Mean Corpuscular Hemoglobin 31.3 31.8 31.5 28.0-32.0 pg Mean Corpuscular Hemoglobin Concent 33.2 33.9 33.8 32.0-36.0 g/dL Red Cell Distribution Width 14.8 H 14.3 14.0 11.8-14.3 % Platelet Count 358 313 267 140-450 10^3/uL Mean Platelet Volume 7.0 7.7 7.9 6.9-10.8 fL Neutrophils (%) (Auto) 57.3 52.5 83.5 H 37.0-80.0 % Lymphocytes (%) (Auto) 27.8 34.8 9.5 L 10.0-50.0 % Monocytes (%) (Auto) 5.5 5.6 6.9 0.0-12.0 % Eosinophils (%) (Auto) 8.7 H 6.8 0.0 0.0-7.0 % Basophils (%) (Auto) 0.7 0.3 0.1 0.0-2.0 % Neutrophils # (Auto) 3.8 4.4 12.3 H 1.6-8.6 10 ^3/uL Lymphocytes # (Auto) 1.8 2.9 1.4 0.4-5.4 10 ^3/uL Monocytes # (Auto) 0.4 0.5 1.0 0-1.3 10 ^3/uL Eosinophils # (Auto) 0.6 0.6 0 0-0.8 10 ^3/uL Basophils # (Auto) 0 0 0 0-0.2 10 ^3/uL Nucleated Red Blood Cells 0.1 0.0 0.0 % Reticulocyte Count (auto) 0.95 0.5-1.5 % Prothrombin Time 10.4 9.3-11.8 sec Prothrombin Time INR 0.98 0.9-1.15 Activated Partial Thromboplast Time 29.2 24.5-34.5 SEC Sodium Level 142 141 136-145 mmol/L Potassium Level 3.9 3.9 3.5-5.1 mmol/L Chloride Level 109 H 105 98-107 mmol/L Carbon Dioxide Level 29 29 20-31 mmol/L Anion Gap 4 L 7 5-15 Blood Urea Nitrogen 14 14 9-23 mg/dL Creatinine 1.19 1.10 0.700-1.30 mg/dL Glomerular Filtration Rate Calc 81 89 >90 mL/min BUN/Creatinine Ratio 11.8 12.7 10.0-20.0 Serum Glucose 102 88 74-106 mg/dL Calcium Level 10.1 10.2 8.7-10.4 mg/dL Iron Level 81 65-175 ug/dL Total Iron Binding Capacity 284 250-425 ug/dL Percent Iron Saturation 28.5 20-55 % Ferritin 73.1 22-322 ng/mL Lactate Dehydrogenase 282 H 120-246 U/L Vitamin B12 Level 324 211-911 pg/mL Folic Acid 5.31 >5.38 ng/mL Magnesium Level 1.9 1.6-2.6 mg/dL Total Bilirubin 0.5 0.2-1.0 mg/dL Aspartate Amino Transferase (AST) 20 13-40 U/L Alanine Aminotransferase (ALT) 14 7-40 U/L Alkaline Phosphatase 85 46-116 U/L B-Type Natriuretic Peptide 17.43 0-100 pg/mL Total Protein 6.8 5.7-8.2 g/dL Albumin 4.2 3.2-4.8 g/dL Triglycerides Level 163 H < 150 mg/dL Cholesterol Level 227 H < 200 mg/dL LDL Cholesterol 153 H < 100 mg/dL HDL Cholesterol 43 40-59 mg/dL Thyroid Stimulating Hormone (TSH) 1.84 0.55-4.78 uIU/mL Urine Opiates Screen Neg NEGATIVE Urine Fentanyl Screen Neg NEGATIVE Urine Barbiturates Screen Neg NEGATIVE Urine Phencyclidine Screen Neg NEGATIVE Urine Amphetamines Screen Neg NEGATIVE Urine Benzodiazepines Screen Neg NEGATIVE Urine Cocaine Screen Neg NEGATIVE Urine Cannabinoids Screen Pos NEGATIVE Test 08/05/24 07:23 Range/Units White Blood Count 11.2 H 4.4-10.8 10^3/uL Red Blood Count 2.87 L 4.5-5.90 10^6/uL Hemoglobin 9.1 L 13.5-17.5 g/dL Hematocrit 27.0 L 41.0-53.0 % Mean Corpuscular Volume 94.0 80.0-100.0 fL Mean Corpuscular Hemoglobin 31.7 28.0-32.0 pg Mean Corpuscular Hemoglobin Concent 33.8 32.0-36.0 g/dL Red Cell Distribution Width 14.7 H 11.8-14.3 % Platelet Count 244 140-450 10^3/uL Mean Platelet Volume 7.5 6.9-10.8 fL Neutrophils (%) (Auto) 71.6 37.0-80.0 % Lymphocytes (%) (Auto) 17.9 10.0-50.0 % Monocytes (%) (Auto) 7.8 0.0-12.0 % Eosinophils (%) (Auto) 2.0 0.0-7.0 % Basophils (%) (Auto) 0.7 0.0-2.0 % Neutrophils # (Auto) 8.0 1.6-8.6 10 ^3/uL Lymphocytes # (Auto) 2.0 0.4-5.4 10 ^3/uL Monocytes # (Auto) 0.9 0-1.3 10 ^3/uL Eosinophils # (Auto) 0.2 0-0.8 10 ^3/uL Basophils # (Auto) 0.1 0-0.2 10 ^3/uL Nucleated Red Blood Cells 0.1 % Assessment/Plan Assessment/Plan Assessment and Plan:Jason Moreno is a 38 year old male POD 2 s/p ORIF left lateral tibial plateau fracture 1) clear for dc home from ortho view 2) follow up ortho clinic 2 wks 3) strict NON wt bearing left LE 4) dc meds have been called in , deja arreguin Plan discussed with: Patient NORY GUY MD Aug 05, 2024 09:55
[2024-08-05] MEDS ORDERED: PERCOT PO (10:52)
[2024-08-05] MEDS ORDERED: CEPH500C PO (10:52)
--- NOTE | 2024-08-05 10:55 | DVHPN2 ---
Reviewed: Care Plan, H&P, Labs, Medications, Previous Orders, Radiology Changes from previous H/P or p: No Changes Eyes: No Pain, No Vision change, No Conjunctivae inflammation, No Eyelid inflammation, No Other, No Redness ENT: No Ear pain, No Ear discharge, No Nose pain, No Nose discharge, No Nose congestion, No Mouth pain, No Mouth swelling, No Throat pain, No Throat swelling, No Other Cardiovascular: No Chest Pain, No Palpitations, No Orthopnea, No Paroxysmal Noc. Dyspnea, No Edema, No Lt Headedness, No Other Respiratory: No Cough, No Dry, No Shortness of breath, No SOB with excertion, No Wheezing, No Hemoptysis, No Pleuritic Pain, No Sputum, No Other Gastrointestinal: No Nausea, No Vomiting, No Abdominal Pain, No Diarrhea, No Constipation, No Melena, No Hematochezia, No Other Genitourinary: No Dysuria, No Frequency, No Incontinence, No Hematuria, No Retention, No Other Musculoskeletal: No other, No neck pain, No shoulder pain, No arm pain, No back pain, No hand pain; leg pain; No foot pain Skin: No Rash, No Lesions, No Jaundice, No Bruising, No Other Objective Vitals Vital Signs Date Time Temp Pulse Resp B/P (MAP) Pulse Ox O2 Delivery O2 Flow Rate FiO2 08/05/24 09:46 70 20 121/74 08/05/24 09:00 98.6 100 98.6 08/04/24 20:00 Room Air* 0 21 Intake/Output Intake and Output 08/05/24 07:00 Intake Total 2980 ml Output Total 2835 ml Balance 145 ml Intake Oral 980 ml IV Total 2000 ml Output Urine Total 2835 ml Medications Current Medications Medications Dose Ordered Sig/Martin Route Start Time Stop Time Status Last Admin Dose Admin Ondansetron HCl 4 mg Q4HP PRN IV 08/02/24 11:45 08/03/24 01:09 4 MG Docusate Sodium 100 mg BIDPRN PRN PO 08/02/24 11:45 08/03/24 20:50 100 MG Enoxaparin Sodium 40 mg DAILY SC 08/03/24 10:00 08/05/24 09:45 40 MG Nitroglycerin 0.4 mg Q5MINP PRN SL 08/02/24 11:45 Potassium Chloride 20 meq/ Dextrose/Sodium Chloride 1,010 ml @ 150 mls/hr Q6H44M IV 08/04/24 17:45 08/05/24 03:49 150 MLS/HR Hydromorphone HCl 2 mg Q4HPRN PRN IV 08/05/24 10:45 UNV Laboratory Results Laboratory Tests 08/03/24 04:57 08/05/24 07:23 Microbiology Microbiology Date/Time Source Procedure Growth Status 08/03/24 12:28 Knee Left Gram Stain - Final Resulted 08/03/24 12:28 Knee Left Anaerobic Culture - Preliminary Resulted 08/03/24 12:28 Knee Left Aerobic Culture - Preliminary Resulted Labs and/or images reviewed: Labs reviewed by me, Image(s) reviewed by me Assessment/Plan Assessment/Plan Fracture left tibia plateau status post ORIF lateral tibial plateau left knee by Dr. Ordonez on 08-03-24 continue Dilaudid, Acute dehydration: IV fluids Patient Was cleared For discharge by Dr. Ordonez Plan discussed with: Patient My Orders Orders - DANDRE ALEXIS MD Procedure Category Date Status Time Pt Request For Service PT 08/04/24 Logged 16:12 Hydromorphone PHA 08/05/24 Logged Injection (Dilaudid 10:45 Date of Service: Aug 05, 2024 Billing Provider: DANDRE ALEXIS MD Common Visit Codes: [id number] INP/OBS CARE(HIGH) DANDRE ALEXIS MD Aug 05, 2024 10:55
--- NOTE | 2024-08-05 11:01 | DVHDS2 ---
Discharge Summary Date of Admission Aug 02, 2024 at 11:33 Date of Discharge: Aug 05, 2024 Admitting Diagnosis Fracture left tibia plateau Wounds: ORIF Labs/Diagnostic Data: Laboratory Results Test 08/05/24 07:23 08/03/24 09:15 08/03/24 04:57 08/02/24 08:14 White Blood Count 11.2 10^3/uL (4.4-10.8) Red Blood Count 2.87 10^6/uL (4.5-5.90) Hemoglobin 9.1 g/dL (13.5-17.5) Hematocrit 27.0 % (41.0-53.0) Mean Corpuscular Volume 94.0 fL (80.0-100.0) Mean Corpuscular Hemoglobin 31.7 pg (28.0-32.0) Mean Corpuscular Hemoglobin Concent 33.8 g/dL (32.0-36.0) Red Cell Distribution Width 14.7 % (11.8-14.3) Platelet Count 244 10^3/uL (140-450) Mean Platelet Volume 7.5 fL (6.9-10.8) Neutrophils (%) (Auto) 71.6 % (37.0-80.0) Lymphocytes (%) (Auto) 17.9 % (10.0-50.0) Monocytes (%) (Auto) 7.8 % (0.0-12.0) Eosinophils (%) (Auto) 2.0 % (0.0-7.0) Basophils (%) (Auto) 0.7 % (0.0-2.0) Neutrophils # (Auto) 8.0 10 ^3/uL (1.6-8.6) Lymphocytes # (Auto) 2.0 10 ^3/uL (0.4-5.4) Monocytes # (Auto) 0.9 10 ^3/uL (0-1.3) Eosinophils # (Auto) 0.2 10 ^3/uL (0-0.8) Basophils # (Auto) 0.1 10 ^3/uL (0-0.2) Nucleated Red Blood Cells 0.1 % Urine Opiates Screen Neg (NEGATIVE) Urine Fentanyl Screen Neg (NEGATIVE) Urine Barbiturates Screen Neg (NEGATIVE) Urine Phencyclidine Screen Neg (NEGATIVE) Urine Amphetamines Screen Neg (NEGATIVE) Urine Benzodiazepines Screen Neg (NEGATIVE) Urine Cocaine Screen Neg (NEGATIVE) Urine Cannabinoids Screen Pos (NEGATIVE) Sodium Level 141 mmol/L (136-145) Potassium Level 3.9 mmol/L (3.5-5.1) Chloride Level 105 mmol/L (98-107) Carbon Dioxide Level 29 mmol/L (20-31) Anion Gap 7 (5-15) Blood Urea Nitrogen 14 mg/dL (9-23) Creatinine 1.10 mg/dL (0.700-1.30) Glomerular Filtration Rate Calc 89 mL/min (>90) BUN/Creatinine Ratio 12.7 (10.0-20.0) Serum Glucose 88 mg/dL (74-106) Calcium Level 10.2 mg/dL (8.7-10.4) Magnesium Level 1.9 mg/dL (1.6-2.6) Total Bilirubin 0.5 mg/dL (0.2-1.0) Aspartate Amino Transferase (AST) 20 U/L (13-40) Alanine Aminotransferase (ALT) 14 U/L (7-40) Alkaline Phosphatase 85 U/L (46-116) B-Type Natriuretic Peptide 17.43 pg/mL (0-100) Total Protein 6.8 g/dL (5.7-8.2) Albumin 4.2 g/dL (3.2-4.8) Triglycerides Level 163 mg/dL (< 150) Cholesterol Level 227 mg/dL (< 200) LDL Cholesterol 153 mg/dL (< 100) HDL Cholesterol 43 mg/dL (40-59) Thyroid Stimulating Hormone (TSH) 1.84 uIU/mL (0.55-4.78) Reticulocyte Count (auto) 0.95 % (0.5-1.5) Prothrombin Time 10.4 sec (9.3-11.8) Prothrombin Time INR 0.98 (0.9-1.15) Activated Partial Thromboplast Time 29.2 SEC (24.5-34.5) Iron Level 81 ug/dL (65-175) Total Iron Binding Capacity 284 ug/dL (250-425) Percent Iron Saturation 28.5 % (20-55) Ferritin 73.1 ng/mL (22-322) Lactate Dehydrogenase 282 U/L (120-246) Vitamin B12 Level 324 pg/mL (211-911) Folic Acid 5.31 ng/mL (>5.38) Other Laboratory Tests 08/05/24 07:23 08/03/24 04:57 Brief Hx & Hospital Course: 38-year-old male with a history of fracture left tibial plateau three weeks ago while playing basketball admitted and underwent ORIF by Dr. Ordonez on 08-03-24 pain medications IV fluids and he has a knee brace in place and he has crutches at home. Cleared for discharge by ortho discharged home on Keflex and Percocet he will follow up with the ortho in two weeks. Received physical therapy while in the hospital. Consults/Reason for consult Orthopedic Dr. Starks Operations or Procedures ORIF left tibial plateau fracture Condition at Discharge: Fair Final Diagnosis/Problems List Fracture left tibia plateau status post ORIF lateral tibial plateau left knee by Dr. Ordonez on 08-03-24 continue Dilaudid, Acute dehydration: IV fluids Discharge Disposition: Home Discharge Instruct/Medications Diet: Regular Activity: See Comment Activity comment: No Weight-bearing lower extremity Follow Up/Referral: Follow up with Orthopedic Dr. Starks in 2 weeks Medications: Percocet keflex Transmitted to [facility] [id number] [place] [address] 35 (time Taken For discharge summary 35 minutes) Discharge Statement: "Patient was advised to return to the ER or call 911 if any headaches, dizziness, shortness of breath, chest pain, abdominal pain, bleeding, fevers, or worsening of medical condition. Patient was counseled about treatment plan, medications, possible side effects, patientverbalized understanding. All questions were answered to the best of my ability. This discharge took greater then 30 minutes in planning, reviewing documentation, counseling the patient, and discussing with other team members." ASSESSMENT ASSESSMENT Hospital Course Improved Assessment Fracture left tibia plateau status post ORIF lateral tibial plateau left knee by Dr. Ordonez on 08-03-24 continue Dilaudid, Acute dehydration: IV fluids Date of Service: Aug 05, 2024 Billing Provider: DANDRE ALEXIS MD Common Visit Codes: 13609-RIY/OBS DISCH DAY >30min DANDRE ALEXIS MD Aug 05, 2024 11:01
[2024-08-05] MEDS: HYDROmorphone HCL 2 MG/ML VL/or syr IV PRN (11:57)
== END 2024-08-05 19:02 | disposition home or self-care (01) | DRG 313 ==
LOC: ER 07:21 → OVERFLOW 11:33 → TELE-WESTW 08-03 00:27 → WEST WING 08-04 07:34
PROVIDERS: ADMIT Nurse Practitioner Family; ATTEND Family Medicine
PROC: 0QSH04Z Reposition Left Tibia with Internal Fixation Device, Open Approach (ICD-10-PCS; principal; 2024-08-03 11:47)
DX: S82.142A Displaced bicondylar fracture of left tibia, initial encounter for closed fracture (principal); D64.9 Anemia, unspecified; S82.402A Unspecified fracture of shaft of left fibula, initial encounter for closed fracture; E86.0 Dehydration; F41.9 Anxiety disorder, unspecified; W18.39XA Other fall on same level, initial encounter; Y93.67 Activity, basketball; Y92.89 Other specified places as the place of occurrence of the external cause; Y99.8 Other external cause status
CPT/HCPCS: 36415; 73590; 76000; 80048; 80053; 80061; 80307; 82607; 82728; 82746; 83540; 83550; 83615; 83735; 83880; 84443; 85025; 85045; 85610; 85730; 86850; 86900; 86901; 87070; 87075; 87081; 87205; 93005; 93306; 97163; 99291; G0378; J0131; J1100; J1885; J2405; J2704; J3480